=== PATIENT | female | born 1950 | race American Indian/Alaskan Native ===

== ENCOUNTER 2016-09-22 04:07 | Inpatient (IN) | payer MEDICARE ==
[2016-09-22] MEDS ORDERED: LASIX IV ONE (04:14)
[2016-09-22] MEDS ORDERED: PROVENTIL IH ONE (04:15)
[2016-09-22 04:59] LABS: Basophils % (Auto) 0.9 % (0.0-1.8); Eosinophils % (Auto) 2.2 % (0.0-4.3); Hematocrit 29.3 % (30.3-42.9); Hemoglobin 9.6 gm/dl (10.1-14.3); Mean Corpuscular HGB Conc 33 % (30-34); Mean Corpuscular Hemoglobin 29 pg (28-32); Mean Corpuscular Volume 89 fl (79-97); Platelet Count 303 K/mm3 (140-440); Red Blood Count 3.29 M/mm3 (3.65-5.03); Red Cell Distribution Width 16.1 % (13.2-15.2); White Blood Count 9.9 K/mm3 (4.5-11.0)
[2016-09-22 05:17] LABS: Creatine Kinase MB 1.6 ng/mL (0.0-4.0)
[2016-09-22 05:19] LABS: BUN/Creatinine Ratio 5.63; Calcium 8.7 mg/dL (8.4-10.2); Chloride 101.7 mmol/L (98-107); Potassium 4.9 mmol/L (3.6-5.0)
--- NOTE | 2016-09-22 05:27 | XRay Report ---
FINAL REPORT PROCEDURE: XR CHEST 1V AP TECHNIQUE: Chest radiograph anteroposterior view. CPT 35566 HISTORY: sob COMPARISON: No prior studies are available for comparison. FINDINGS: Heart: Heart is enlarged. Mediastinum/Vessels: Normal. Lungs/Pleural space: Lungs are well-expanded. There are infiltrates in the right lung base. There is a tiny right pleural effusion. There are no pneumothoraces. Bony thorax: No acute osseous abnormality. Life support devices: None. IMPRESSION: Cardiomegaly. There are right lower lobe infiltrates.. There is a tiny right pleural effusion.
--- NOTE | 2016-09-22 05:31 | Emergency Department Report ---
ED Shortness of Breath HPI - General Chief Complaint: Dyspnea/Respdistress Stated Complaint: YFN Time Seen by Provider: 09/22/16 04:11 Source: patient, EMS Mode of arrival: Stretcher Limitations: No Limitations - History of Present Illness Initial Comments: 66 year old female with a past medical history diabetes, hypertension, end- stage disease on dialysis, and elevated cholesterol presents to the hospital complaining of shortness of breath that started tonight. Patient is visiting from out of town and received her last dialysis on Wednesday. She was unable to arrange for local dialysis. Patient is room air saturation was 88% upon EMS arrival and she does not take home oxygen. She states she does take nebulized treatments on occasion but denies a history of asthma or COPD. No pain reported. O2 sat and symptoms improved with nonrebreather in route to the hospital. - Related Data Home Medications Medication Instructions Recorded Confirmed Last Taken Aspirin [Aspirin BABY CHEW TAB] 81 mg PO QDAY 08/03/13 08/03/13 08/03/13 07:00 Cinacalcet [Sensipar] 30 mg PO QDAY 08/03/13 08/03/13 08/03/13 07:00 Lisinopril [Zestril TAB] 40 mg PO BID 08/03/13 08/03/13 08/03/13 07:00 NIFEdipine [NIFEdipine ER] 60 mg PO BID 08/03/13 08/03/13 08/03/13 07:00 Omeprazole [PriLOSEC] 40 mg PO QDAY 08/03/13 08/03/13 08/03/13 07:00 Psyllium Husk [Metamucil] 0.52 gm PO QDAY 08/03/13 08/03/13 08/03/13 07:00 Vit B Cmplx 3/FA/Vit C/Biotin 1 each PO QDAY 08/03/13 08/03/13 08/03/13 07:00 [Nephro-Sheila Rx Tablet] Previous Rx's Medication Instructions Recorded Last Taken Type Cephalexin [Keflex] 500 mg PO TID #30 capsule 08/03/13 Unknown Rx Fluconazole [Diflucan TAB] 150 mg PO QDAY #1 tablet 08/03/13 Unknown Rx Sulfamethoxazole/Trimethoprim 1 each PO BID #20 tablet 08/03/13 Unknown Rx [Bactrim DS TAB] traMADol [Ultram 50 MG tab] 50 mg PO Q6HR PRN #20 tablet 08/03/13 Unknown Rx traMADol [Ultram 50 MG tab] 25 mg PO Q6HR PRN #20 tablet 02/10/14 Unknown Rx Allergies Allergy/AdvReac Type Severity Reaction Status Date / Time adhesive Allergy Mild Rash Verified 09/22/16 05:21 ED Review of Systems ROS: Stated complaint: YFN Other details as noted in HPI Comment: All other systems reviewed and negative Other: Constitutional: No fevers chills Eyes: No eye pain visual changes or ENT: No ear pain or throat pain Neck: Denies pain Respiratory: Positive shortness of breath Cardiovascular: Denies chest pain, palpitations, syncope GI: Denies abdominal pain, nausea, vomiting, diarrhea : Patient does make urine Musculoskeletal: Denies back pain Skin: Denies rash, lesions, erythema Neurologic: Denies headache, numbness, weakness Psychiatric: Denies suicidal ideation, hallucinations ED Past Medical Hx - Past Medical History Hx Hypertension: Yes Hx Diabetes: Yes Hx Renal Disease: Yes (dialysis: ) Additional medical history: High cholesterol - Surgical History Additional Surgical History: AV graft; Lumpectomy R breast - Social History Smoking Status: Current Every Day Smoker Substance Use Type: None - Medications Home Medications: Home Medications Medication Instructions Recorded Confirmed Last Taken Type Aspirin [Aspirin BABY CHEW TAB] 81 mg PO QDAY 08/03/13 08/03/13 08/03/13 07:00 History Cephalexin [Keflex] 500 mg PO TID #30 capsule 08/03/13 Unknown Rx Cinacalcet [Sensipar] 30 mg PO QDAY 08/03/13 08/03/13 08/03/13 07:00 History Fluconazole [Diflucan TAB] 150 mg PO QDAY #1 tablet 08/03/13 Unknown Rx Lisinopril [Zestril TAB] 40 mg PO BID 08/03/13 08/03/13 08/03/13 07:00 History NIFEdipine [NIFEdipine ER] 60 mg PO BID 08/03/13 08/03/13 08/03/13 07:00 History Omeprazole [PriLOSEC] 40 mg PO QDAY 08/03/13 08/03/13 08/03/13 07:00 History Psyllium Husk [Metamucil] 0.52 gm PO QDAY 08/03/13 08/03/13 08/03/13 07:00 History Sulfamethoxazole/Trimethoprim 1 each PO BID #20 tablet 08/03/13 Unknown Rx [Bactrim DS TAB] Vit B Cmplx 3/FA/Vit C/Biotin 1 each PO QDAY 08/03/13 08/03/13 08/03/13 07:00 History [Nephro-Sheila Rx Tablet] traMADol [Ultram 50 MG tab] 50 mg PO Q6HR PRN #20 tablet 08/03/13 Unknown Rx traMADol [Ultram 50 MG tab] 25 mg PO Q6HR PRN #20 tablet 02/10/14 Unknown Rx ED Physical Exam - General Limitations: No Limitations - Other Other exam information: General: No limitations, patient is alert in no acute distress Head exam: Atraumatic, normocephalic Eyes exam: Normal appearance ENT: Moist mucous membrane, normal oropharynx Neck exam: Normal inspection, full range of motion Respiratory exam: Rales more pronounced in the right compared to the left Cardiovascular: Normal rate and rhythm, normal heart sounds Abdomen: Soft, nondistended, and nontender, with normal bowel sounds, no rebound, or guarding Extremity: Full range of motion normal inspection no deformity, no calf tenderness or edema Back: Normal Inspection, full range of motion, no tenderness Neurologic: Alert, oriented x3, cranial nerves intact, no motor or sensory deficit Psychiatric: normal affect, normal mood Skin: Warm, dry, intact ED Course Vital Signs 09/22/16 09/22/16 09/22/16 04:03 04:15 04:25 Temperature Pulse Rate 79 Pulse Rate [ 74 Anterior Bilateral Throughout] Respiratory 26 H Rate Respiratory 24 Rate [Anterior Bilateral Throughout] Blood Pressure 176/70 O2 Sat by Pulse 100 100 Oximetry 09/22/16 09/22/16 04:36 05:13 Temperature 98.6 F Pulse Rate 87 Pulse Rate [ Anterior Bilateral Throughout] Respiratory 24 24 Rate Respiratory Rate [Anterior Bilateral Throughout] Blood Pressure 190/71 O2 Sat by Pulse 100 100 Oximetry - Reevaluation(s) Reevaluation #1: 09/22/16 05:31 Patient given albuterol and Lasix while labs were pending. Supplemental oxygen was continued - Consultations Consultation #1: 09/22/16 05:[address] 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 We'll arrange for dialysis today ED Medical Decision Making - Lab Data Result diagrams: 09/22/16 04:36 09/22/16 04:36 Lab Results 09/22/16 09/22/16 Range/Units 04:36 04:36 WBC 9.9 (4.5-11.0) K/mm3 RBC 3.29 L (3.65-5.03) M/mm3 Hgb 9.6 L (10.1-14.3) gm/dl Hct 29.3 L (30.3-42.9) % MCV 89 (79-97) fl MCH 29 (28-32) pg MCHC 33 (30-34) % RDW 16.1 H (13.2-15.2) % Plt Count 303 (140-440) K/mm3 Lymph % (Auto) 8.7 L (13.4-35.0) % Dodge % (Auto) 6.2 (0.0-7.3) % Eos % (Auto) 2.2 (0.0-4.3) % Baso % (Auto) 0.9 (0.0-1.8) % Lymph # 0.9 L (1.2-5.4) K/mm3 Dodge # 0.6 (0.0-0.8) K/mm3 Eos # 0.2 (0.0-0.4) K/mm3 Baso # 0.1 (0.0-0.1) K/mm3 Seg Neutrophils % 82.0 H (40.0-70.0) % Seg Neutrophils # 8.1 H (1.8-7.7) K/mm3 Sodium 144 (137-145) mmol/L Potassium 4.9 (3.6-5.0) mmol/L Chloride 101.7 (98-107) mmol/L Carbon Dioxide 25 (22-30) mmol/L Anion Gap 22 mmol/L BUN 49 H (7-17) mg/dL Creatinine 8.7 H (0.7-1.2) mg/dL Estimated GFR 6 ml/min BUN/Creatinine Ratio 5.63 % Glucose 98 (65-100) mg/dL Calcium 8.7 (8.4-10.2) mg/dL Total Creatine Kinase 91 (30-135) units/L CK-MB (CK-2) 1.6 (0.0-4.0) ng/mL CK-MB (CK-2) Rel Index 1.7 (0-4) Troponin T 0.042 H (0.00-0.029) ng/mL - EKG Data -: EKG Interpreted by Me (sinus with sinus arrhythmia weight [address] elevation or T-wave inversions) - EKG Data When compared to previous EKG there are: previous EKG unavailable - Radiology Data Radiology results: image reviewed (chest x-ray: CHF worse at the right) - Medical Decision Making Chest x-ray was read as right lower lobe infiltrate. Suspect that this is related to CHF since patient has been noncompliant with dialysis. She will be covered with Levaquin and blood cultures have been ordered. Case has been discussed with hospitalist and nephrology. Dialysis will be provided today. Elevated troponin like he secondary to chronic renal disease and no ST elevation or T-wave inversions identified on EKG. Repeat troponin will be needed. Nitropaste also ordered - Differential Diagnosis CHF, pneumonia, bronchitis, asthma Critical Care Time: No Critical care attestation.: If time is entered above; I have spent that time in minutes in the direct care of this critically ill patient, excluding procedure time. ED Disposition Clinical Impression: SOB (shortness of breath), Hypoxia, Dialysis patient, noncompliant, Right pulmonary infiltrate on CXR, Elevated troponin, Anemia, HTN (hypertension) Disposition: OP ADMIT IP TO THIS HOSP Is pt being admited?: Yes Does the pt Need Aspirin: Yes Condition: Stable Time of Disposition: 05:37 (Dr. Barba/[facility])
[2016-09-22] MEDS ORDERED: NITRO-BID 2% TP ONE (05:38)
[2016-09-22] MEDS ORDERED: ASPIRIN PO ONE (05:39)
[2016-09-22] MEDS: LEVAQUIN 750MG/150ML 750 MG/150 ML BAG IV ONE ×2 (05:54→11:37)
[2016-09-22] MEDS ORDERED: NACL 0.9% 1000 ML 1,000 ML ONE (06:38)
[2016-09-22] MEDS ORDERED: CARDIZEM/D5W 100MG/100ML 100 MG/100 ML BAG IV ONE (06:44)
--- NOTE | 2016-09-22 06:48 | Consultation ---
History of Present Illness Consult date: 09/22/16 Requesting physician: LOIDA BEASLEY Consult reason: arrhythmia History of present illness: Patient presented to the ER with complaints of shortness of breath. Patient with history of ESRD on dialysis who apparently missed dialysis this week was brought in to the ER with complaints of shortness of breath. On initial assessments she was in respiratory distress and had to be placed on a non rebreather. On arrival to the ER she apparently had diffuse wheeze and had to be administered nebulizer. Soon after jamie she went into rapid tachycardia. Initial evaluation was consistent with SVT. She received adenosine and was noted to be in atrial flutter. Patient unable to give good history. Patient in moderate distress. Past History Past Medical History: ESRD, hypertension, renal failure Social history: no significant social history Family history: no significant family history Medications and Allergies Allergies Allergy/AdvReac Type Severity Reaction Status Date / Time adhesive Allergy Mild Rash Verified 09/22/16 05:21 Home Medications Medication Instructions Recorded Confirmed Last Taken Type Aspirin [Aspirin BABY CHEW TAB] 81 mg PO QDAY 08/03/13 08/03/13 08/03/13 07:00 History Cephalexin [Keflex] 500 mg PO TID #30 capsule 08/03/13 Unknown Rx Cinacalcet [Sensipar] 30 mg PO QDAY 08/03/13 08/03/13 08/03/13 07:00 History Fluconazole [Diflucan TAB] 150 mg PO QDAY #1 tablet 08/03/13 Unknown Rx Lisinopril [Zestril TAB] 40 mg PO BID 08/03/13 08/03/13 08/03/13 07:00 History NIFEdipine [NIFEdipine ER] 60 mg PO BID 08/03/13 08/03/13 08/03/13 07:00 History Omeprazole [PriLOSEC] 40 mg PO QDAY 08/03/13 08/03/13 08/03/13 07:00 History Psyllium Husk [Metamucil] 0.52 gm PO QDAY 08/03/13 08/03/13 08/03/13 07:00 History Sulfamethoxazole/Trimethoprim 1 each PO BID #20 tablet 08/03/13 Unknown Rx [Bactrim DS TAB] Vit B Cmplx 3/FA/Vit C/Biotin 1 each PO QDAY 0508/03/13 08/03/13 07:00 History [Nephro-Sheila Rx Tablet] traMADol [Ultram 50 MG tab] 50 mg PO Q6HR PRN #20 tablet 08/03/13 Unknown Rx traMADol [Ultram 50 MG tab] 25 mg PO Q6HR PRN #20 tablet 02/10/14 Unknown Rx Active Meds: Active Medications Adenosine (Adenocard) 6 mg IV ONCE ONE Stop: 09/22/16 07:01 Levofloxacin/Dextrose (Levaquin 750mg/150ml) 750 mg in 150 mls @ 100 mls/hr IV ONCE ONE Stop: 09/22/16 07:05 Last Admin: 09/22/16 05:54 Dose: 100 mls/hr Review of Systems All systems: negative (as mentioned above) Physical Examination Vital Signs Pulse Ox 100 09/22/16 04:03 General appearance: cachectic, disheveled HEENT: Positive: Normocephaly Neck: Positive: neck supple Cardiac: Positive: Tachycardia Lungs: Positive: Rales Neuro: Positive: Grossly Intact Abdomen: Positive: Unremarkable Female genitourinary: deferred Extremities: Present: normal Results 09/22/16 04:36 09/22/16 04:36 EKG interpretations - Telemetry EKG Rhythm: Atrial Flutter (with reciprocal inferior ST depression) Assessment and Plan 1. Atrial flutter with RVR ( hemodynamicaly stable ) 2. Respiratory distress COPD/CHF 3. Elevated BNP with clinical findings suggestive of CHF 4. Borderline elevated troponin demand ischemia vs non specific elevation due to renal failure 5. ESRD on hemodylasis and non compliance Plan 1. IV cardizem /Cardizem drip 2. Dialysis for fluid removal 3. Start IV heparin 4. Start betablockers 5. 2D echo 6. Ichemia eval invasive vs non invasive depending on the clinical course 7. Start his intensity statins
[2016-09-22] MEDS ORDERED: CARDIZEM IV ONE (07:04)
--- NOTE | 2016-09-22 07:28 | Consultation ---
History of Present Illness - Reason for Consult Consult date: 09/22/16 end stage renal disease, other (Volume overload) - History of Present Illness Patient is a 66 year old AAF with medical history significnat for DM type 2, Hypertension, ESRD on hemodialysis(MWF), CVA, Hyperlipidemia, Tobacco smoking and suspected right kidney cancer presented to the ER complaining of shortness of breath. The symptom started few hours prior to the presentation. Patient is visiting from [place] and received her last dialysis on Wednesday. She didn't arrange for local dialysis and hence unable to get hemodialysis yesterday. Her initial saturation was 88% on RA. Her symptoms are better with treatment. She was found to have right sided pneumonia and A.fib with RVR. Past History Past Medical History: anemia, cancer, diabetes, dialysis, ESRD, hypertension, hyperlipidemia, renal failure, stroke Social history: no significant social history Family history: no significant family history Medications and Allergies Allergies Allergy/AdvReac Type Severity Reaction Status Date / Time adhesive Allergy Mild Rash Verified 09/22/16 05:21 Home Medications Medication Instructions Recorded Confirmed Last Taken Type Aspirin [Aspirin BABY CHEW TAB] 81 mg PO QDAY 08/03/13 08/03/13 08/03/13 07:00 History Cephalexin [Keflex] 500 mg PO TID #30 capsule 08/03/13 Unknown Rx Cinacalcet [Sensipar] 30 mg PO QDAY 08/03/13 08/03/13 08/03/13 07:00 History Fluconazole [Diflucan TAB] 150 mg PO QDAY #1 tablet 08/03/13 Unknown Rx Lisinopril [Zestril TAB] 40 mg PO BID 08/03/13 08/03/13 08/03/13 07:00 History NIFEdipine [NIFEdipine ER] 60 mg PO BID 08/03/13 08/03/13 08/03/13 07:00 History Omeprazole [PriLOSEC] 40 mg PO QDAY 08/03/13 08/03/13 08/03/13 07:00 History Psyllium Husk [Metamucil] 0.52 gm PO QDAY 08/03/13 08/03/13 08/03/13 07:00 History Sulfamethoxazole/Trimethoprim 1 each PO BID #20 tablet 08/03/13 Unknown Rx [Bactrim DS TAB] Vit B Cmplx 3/FA/Vit C/Biotin 1 each PO QDAY 08/03/13 08/03/13 08/03/13 07:00 History [Nephro-Sheila Rx Tablet] traMADol [Ultram 50 MG tab] 50 mg PO Q6HR PRN #20 tablet 08/03/13 Unknown Rx traMADol [Ultram 50 MG tab] 25 mg PO Q6HR PRN #20 tablet 02/10/14 Unknown Rx Review of Systems Constitutional: no weight loss, no weight gain, no fever, no chills, no anorexia , no weakness, no poor appetite Ears, nose, mouth and throat: no sinus pain, no epistaxis Breasts: deferred Cardiovascular: shortness of breath, dyspnea on exertion, high blood pressure, no chest pain, no orthopnea, no palpitations, no edema, no syncope, no lightheadedness, no leg edema Respiratory: cough, shortness of breath, dyspnea on exertion, no cough with sputum, no hemoptysis, no home oxygen Gastrointestinal: no abdominal pain, no nausea, no vomiting, no diarrhea, no hematemesis, no melena, no jaundice Genitourinary Female: no dysuria, no hematuria Rectal: no bleeding Musculoskeletal: no neck stiffness Integumentary: no rash, no wounds, no jaundice Neurological: paralysis, weakness, no head injury, no parathesias, no numbness, no seizures, no syncope, no tremors Psychiatric: no disorientation Hematologic/Lymphatic: no easy bruising, no easy bleeding Exam - Vital Signs Vital signs: Vital Signs Pulse Ox 100 09/22/16 04:03 - General Appearance General appearance: well-developed, appears stated age, frail, other (no distress) EENT: ATNC, PERRL, mucous membranes moist, hearing intact, vision intact Neck: Present: neck supple, trachea midline Respiratory: Rales (right base) Heart: irregularly irregular, tachycardia, S1S2, no murmurs Gastrointestinal: Present: normoactive bowel sounds. Absent: tenderness, distended Integumentary: no rash Neurologic: no asterixis, alert and oriented x3, CN 3-12 intact, other (minimal weakness of left leg) Musculoskeletal: Present: other (lefta rm AVG, no edema) Psychiatric: mood/affect appropriate, cooperative Results - Lab Results 09/22/16 04:36 09/22/16 04:36 Most recent lab results Calcium 8.7 mg/dL (8.4-10.2) 09/22/16 04:36 Assessment and Plan - Patient Problems (1) ESRD (end stage renal disease) on dialysis Current Visit: Yes Status: Chronic Plan to address problem: Patient missed hemodialysis yesterday. Currently her heart rate is 140s. Await heart rate to improve before we do hemodialysis. No acute indication for hemodialysis at present. (2) Right pulmonary infiltrate on CXR Current Visit: Yes Status: Acute (3) Atrial flutter Current Visit: Yes Status: Acute Qualifiers: Atrial flutter type: A Plan to address problem: Evaluated by Cards. (4) Anemia Current Visit: Yes Status: Chronic Qualifiers: Anemia type: A Iron deficiency anemia type: I Vitamin B12 deficiency anemia type: V Folate deficiency anemia type: F Bone marrow failure anemia type: B Hemolytic anemia type: H Other causes of anemia: O Chronic kidney disease stage: on chronic dialysis Qualified Code(s): N18.6 - End stage renal disease; D63.1 - Anemia in chronic kidney disease; Z99.2 - Dependence on renal dialysis Plan to address problem: Epogen. (5) HTN (hypertension) Current Visit: Yes Status: Acute Qualifiers: Hypertension type: H Plan to address problem: BP is fair.
--- NOTE | 2016-09-22 07:41 | Admit Criteria Form ---
Admission Criteria Documentation: SUPRAVENTRICULAR ARRHYTHMIAS Clinical Indications for Admission to Inpatient Care (Place 'X' for any and all applicable criteria): Admission is indicated by ANY ONE of the following (1)(2): [X]I. Arrhythmia causing significant symptoms or findings as indicated by ANY ONE of the following: [ ]a) Chest pain [ ]b) Myocardial ischemia [ ]c) Altered mental status [ ]d) Dizziness, weakness, or light-headedness [X]e) Dyspnea or hypoxemia [ ]f) Heart failure (eg, pulmonary edema)(11) [ ]II. Initiation of antiarrhythmic drug therapy is needed in patient at high risk of adverse events as indicated by ANY ONE of the following: [ ]a) Significant structural heart disease (eg, aortic stenosis, reduced ejection fraction, cardiomyopathy, congenital heart disease) [ ]b) Underlying sinus node or atrioventricular conduction disturbances [ ]c) Prolonged QT interval [ ]d) Need for treatment with antiarrhythmic that have significant proarrhythmic potential ( procainamide) [ ]e) Patient whose sinus rhythm has not been observed on ECG [ ]III. Inpatient admission required rather than observation care because of ANY ONE of the following: [ ]a) Syncope [ ]b) Patient has automatic implanted cardioverter-defibrillator that is repeatedly firing, malfunctioning, or in need of immediate adjustment of settings beyond scope of ambulatory or observation care. [ ]c) Hemodynamic instability that is severe or persistent [ ]d) Unstable cardiac conduction defects indicated by ANY ONE of the following(19)(20)(21): [ ]a) Type II second-degree atrioventricular block [ ]b) Third-degree atrioventricular block [ ]C) New-onset left bundle branch block with suspected myocardial ischemia [ ]e) Severe electrolyte abnormalities requiring inpatient care [ ]f) Continuous intravenous infusion of anticoagulation, platelet inhibitor, vasoactive, or antiarrhythmic medication(14) [ ]g) Pulmonary artery catheter monitoring [ ]h) Repeat cardioversion necessary [X]i) Other condition, treatment or monitoring requiring inpatient admission [ ]IV. Underlying medical condition that necessitates inpatient care (eg, thyrotoxicosis, severe acidosis) Extended stay beyond goal length of stay may be needed for(1)(17)(18): [ ]a) Persistent hemodynamic instability or continued severe arrhythmia [ ]b) Continued monitoring during initiation of certain medications (eg, some antiarrhythmics)(17)(19) [ ]c) Precipitating cause requires ongoing inpatient care (eg, severe electrolyte abnormality, systemic infection, acidosis) [ ]d) Unstable comorbidities The original [facility] content created by [facility] has been revised. The portions of the content which have been revised are identified through the use of italic text or in bold, and [facility] has neither reviewed nor approved the modified material. All other unmodified content is copyright [facility]. Please see references footnoted in the original [facility] edition 2016 Admission Criteria Met: Yes
--- NOTE | 2016-09-22 07:55 | History and Physical Report ---
History of Present Illness Date of examination: 09/22/16 Date of admission: 09/22/16 05:39 Chief complaint: Shortness of breath History of present illness: Patient is a 66-year-old woman with a history of end-stage renal disease on hemodialysis mwf, hypertension, left kidney mass reported as benign (has ablation scheduled for September 25) and GERD from [place], [place] (outside of [place]) who is visiting [place] to vist her daughter, Sharee, at bedside. She did not verify her hemodialysis setup in the [place] area prior to visiting (counseling done). She had missed multiple hemodialysis session and presents severe progressive constant nonradiating, sob at rest. She denies chest pain, productive cough, fevers or chills, abdominal pain or nausea/vomiting. She was found have severe tachycardia and SVT given adenosine and converted to a flutter with RVR. Past medical history: As HPI Past surgical history: Hemodialysis access Social history: Nonsmoker no alcohol or illegal drugs Family history: Asked but noncontributory ROS: as HPI and all other ROS reviewed and negative. Past History Past Medical History: ESRD, hypertension, renal failure Social history: no significant social history Family history: no significant family history Medications and Allergies Allergies Allergy/AdvReac Type Severity Reaction Status Date / Time adhesive Allergy Mild Rash Verified 09/22/16 05:21 levofloxacin [From Levaquin] Allergy Itching Verified 09/22/16 11:45 Home Medications Medication Instructions Recorded Confirmed Last Taken Type Cinacalcet [Sensipar] 30 mg PO QDAY 08/03/13 09/22/16 09/21/16 History Vit B Cmplx 3/FA/Vit C/Biotin 1 each PO QDAY 08/03/13 09/22/16 09/21/16 History [Nephro-Sheila Rx Tablet] traMADol [Ultram 50 MG tab] 25 mg PO Q6HR PRN #20 tablet 02/10/14 09/22/1609/21 Rx Lisinopril [Zestril TAB] 10 mg PO QDAY 09/22/16 09/22/16 09/21/16 History Lubiprostone (Nf) [Amitiza Cap 24 mcg PO BID 09/22/16 09/22/16 09/21/16 History (Nf)] Ondansetron [Zofran TAB] 4 mg PO Q8HR PRN 09/22/16 09/22/16 09/21/16 History Pantoprazole [Protonix] 40 mg PO BID 09/22/16 09/22/16 09/21/16 History Simvastatin [Zocor TAB] 20 mg PO QHS 09/22/16 09/22/16 09/21/16 History Umeclidinium [place] [Incruse 62.5 mcg IH DAILY 09/22/16 09/22/16 09/21/16 History Ellipta] amLODIPine [Norvasc] 5 mg PO DAILY 09/22/16 09/22/16 09/21/16 History Active Meds: Active Medications Acetaminophen (Tylenol) 650 mg PO Q4H PRN PRN Reason: Pain MILD(1-3)/Fever >100.5/RAMIRES Bisacodyl (Dulcolax) 10 mg AR QDAY PRN PRN Reason: Constipation unrelieved by MOM Heparin Sodium (Porcine) (Heparin) 5,000 unit SUB-Q Q12HR KORY Diltiazem HCl (Cardizem/D5w 100mg/100ml) 100 mg in 100 mls @ 5 mls/hr IV TITR KORY; 5 MG/HR PRN Reason: Protocol Magnesium Hydroxide (Milk Of Magnesia) 30 ml PO Q4H PRN PRN Reason: Constipation Ondansetron HCl (Zofran) 4 mg IV Q8H PRN PRN Reason: N/V unrelieved by Reglan Exam - Physical Exam Narrative exam: GEN: WDWN, NAD, AWAKE, ALERT, ORIENTATED x 3 HEENT: NCAT, PERRL, EOMI, OP CLEAR NECK: SUPPLE, NO THYROMEGALY, NO JVD, NO LAD CVS: Regular irregular NORMAL S1S2 LUNGS/CHEST: Bibasilar crackles, NORMAL CHEST EXPANSION B, GOOD AIR ENTRY B ABD: SOFT, NTND, GBS, NO REBOUND OR GUARDING EXT/SKIN: NO SIGNIFICANT EDEMA OR RASH MSK: FROM X 4 EXTREMITIES NEURO: CN 2-12 GROSSLY INTACT, NO FOCAL DEFICITS PSY: CALM - Constitutional Vitals: Temp Pulse Resp BP Pulse Ox 98.6 F 151 H 22 124/74 100 09/22/16 04:36 09/22/16 07:06 09/22/16 05:30 09/22/16 07:06 09/22/16 05:13 Results - Labs CBC & Chem 7: 09/22/16 04:36 09/22/16 04:36 Assessment and Plan Patient is a 66-year-old woman with a history of end-stage renal disease on hemodialysis mwf, AOCD, hypertension, left kidney mass reported as benign (has ablation scheduled for September 25) and GERD from [place], [place] (outside of [place]) who is visiting [place] to vist her daughter, Sharee, at bedside. She did not verify her hemodialysis setup in the [place] area prior to visiting (counseling done). She had missed multiple hemodialysis session and presents severe progressive constant nonradiating, sob at rest. She denies chest pain, productive cough, fevers or chills, abdominal pain or nausea/vomiting. She was found have severe tachycardia and SVT given adenosine and converted to a flutter with RVR. Chest x-ray reported as Cardiomegaly and there are right lower lobe infiltrates. There is tiny right pleural effusion. VQ scan lungs: Low probability for PE. -End-stage renal disease, noncompliant with hemodialysis: Consulted nephrology for dialysis, Counseled on compliance -Right lower lobe aspiration pneumonitis with evidence of fluid overload from missing dialysis: Treat with antibiotics, she was given Levaquin started having itching reaction, added as an Allergy -Aflutter with RVR: Cardiology consulted -DVT: scd and sq heparin
[2016-09-22] MEDS ORDERED: ZOFRAN IV PRN (08:00)
[2016-09-22] MEDS ORDERED: MILK OF MAGNESIA PO PRN (08:00)
[2016-09-22] MEDS ORDERED: CARDIZEM/D5W 100MG/100ML 100 MG/100 ML BAG IV SCH (08:00)
--- NOTE | 2016-09-22 08:55 | History and Physical Report ---
History of Present Illness Date of examination: 09/22/16 Date of admission: 09/22/16 05:39 Chief complaint: missed HD History of present illness: 09/22/2016 Past History Past Medical History: ESRD, hypertension, renal failure Social history: no significant social history Family history: no significant family history Medications and Allergies Allergies Allergy/AdvReac Type Severity Reaction Status Date / Time adhesive Allergy Mild Rash Verified 09/22/16 05:21 Home Medications Medication Instructions Recorded Confirmed Last Taken Type Aspirin [Aspirin BABY CHEW TAB] 81 mg PO QDAY 08/03/13 08/03/13 08/03/13 07:00 History Cephalexin [Keflex] 500 mg PO TID #30 capsule 08/03/13 Unknown Rx Cinacalcet [Sensipar] 30 mg PO QDAY 08/03/13 08/03/13 08/03/13 07:00 History Fluconazole [Diflucan TAB] 150 mg PO QDAY #1 tablet 08/03/13 Unknown Rx Lisinopril [Zestril TAB] 40 mg PO BID 08/03/13 08/03/13 08/03/13 07:00 History NIFEdipine [NIFEdipine ER] 60 mg PO BID 08/03/13 08/03/13 08/03/13 07:00 History Omeprazole [PriLOSEC] 40 mg PO QDAY 08/03/13 08/03/13 08/03/13 07:00 History Psyllium [place] [Metamucil] 0.52 gm PO QDAY 08/03/13 08/03/13 08/03/13 07:00 History Sulfamethoxazole/Trimethoprim 1 each PO BID #20 tablet 08/03/13 Unknown Rx [Bactrim DS TAB] Vit B Cmplx 3/FA/Vit C/Biotin 1 each PO QDAY 08/03/13 08/03/13 08/03/13 07:00 History [Nephro-Sheila Rx Tablet] traMADol [Ultram 50 MG tab] 50 mg PO Q6HR PRN #20 tablet 08/03/13 Unknown Rx traMADol [Ultram 50 MG tab] 25 mg PO Q6HR PRN #20 tablet 02/10/14 Unknown Rx Active Meds: Active Medications Acetaminophen (Tylenol) 650 mg PO Q4H PRN PRN Reason: Pain MILD(1-3)/Fever >100.5/RAMIRES Bisacodyl (Dulcolax) 10 mg MN QDAY PRN PRN Reason: Constipation unrelieved by MOM Furosemide (Lasix) 40 mg IV BID KORY Heparin Sodium (Porcine) (Heparin) 5,000 unit SUB-Q Q12HR KORY Diltiazem HCl (Cardizem/D5w 100mg/100ml) 100 mg in 100 mls @ 5 mls/hr IV TITR KORY; 5 MG/HR PRN Reason: Protocol Last Admin: 09/22/16 07:55 Dose: 5 mg/hr, 5 mls/hr Levofloxacin/Dextrose (Levaquin 750mg/150ml) 750 mg in 150 mls @ 100 mls/hr IV Q24HR KORY PRN Reason: Protocol Magnesium Hydroxide (Milk Of Magnesia) 30 ml PO Q4H PRN PRN Reason: Constipation Ondansetron HCl (Zofran) 4 mg IV Q8H PRN PRN Reason: Nausea And Vomiting Exam - Constitutional Vitals: Temp Pulse Resp BP Pulse Ox 98.6 F 179 H 22 164/75 100 09/22/16 04:36 09/22/16 07:55 09/22/16 05:30 09/22/16 07:55 09/22/16 05:13 Results - Labs CBC & Chem 7: 09/22/16 04:36 09/22/16 04:36 Labs: Laboratory Last Values WBC 9.9 K/mm3 (4.5-11.0) 09/22/16 04:36 RBC 3.29 M/mm3 (3.65-5.03) L 09/22/16 04:36 Hgb 9.6 gm/dl (10.1-14.3) L 09/22/16 04:36 Hct 29.3 % (30.3-42.9) L 09/22/16 04:36 MCV 89 fl (79-97) 09/22/16 04:36 MCH 29 pg (28-32) 09/22/16 04:36 MCHC 33 % (30-34) 09/22/16 04:36 RDW 16.1 % (13.2-15.2) H 09/22/16 04:36 Plt Count 303 K/mm3 (140-440) 09/22/16 04:36 Lymph % (Auto) 8.7 % (13.4-35.0) L 09/22/16 04:36 [place] % (Auto) 6.2 % (0.0-7.3) 09/22/16 04:36 Eos % (Auto) 2.2 % (0.0-4.3) 09/22/16 04:36 Baso % (Auto) 0.9 % (0.0-1.8) 09/22/16 04:36 Lymph # 0.9 K/mm3 (1.2-5.4) L 09/22/16 04:36 [place] # 0.6 K/mm3 (0.0-0.8) 09/22/16 04:36 Eos # 0.2 K/mm3 (0.0-0.4) 09/22/16 04:36 Baso # 0.1 K/mm3 (0.0-0.1) 09/22/16 04:36 Seg Neutrophils % 82.0 % (40.0-70.0) H 09/22/16 04:36 Seg Neutrophils # 8.1 K/mm3 (1.8-7.7) H 09/22/16 04:36 Sodium 144 mmol/L (137-145) 09/22/16 04:36 Potassium 4.9 mmol/L (3.6-5.0) 09/22/16 04:36 Chloride 101.7 mmol/L (98-107) 09/22/16 04:36 Carbon Dioxide 25 mmol/L (22-30) 09/22/16 04:36 Anion Gap 22 mmol/L 09/22/16 04:36 BUN 49 mg/dL (7-17) H 09/22/16 04:36 Creatinine 8.7 mg/dL (0.7-1.2) H 09/22/16 04:36 Estimated GFR 6 ml/min 09/22/16 04:36 BUN/Creatinine Ratio 5.63 % 09/22/16 04:36 Glucose 98 mg/dL (65-100) 09/22/16 04:36 Calcium 8.7 mg/dL (8.4-10.2) 09/22/16 04:36 Total Creatine Kinase 91 units/L (30-135) 09/22/16 04:36 CK-MB (CK-2) 1.6 ng/mL (0.0-4.0) 09/22/16 04:36 CK-MB (CK-2) Rel Index 1.7 (0-4) 09/22/16 04:36 Troponin T 0.042 ng/mL (0.00-0.029) H 09/22/16 04:36 NT-Pro-B Natriuret Pep 54075 pg/mL (0-900) H 09/22/16 04:36 Triglycerides 94 mg/dL (2-149) 09/22/16 04:36 Cholesterol 224 mg/dL (50-199) H 09/22/16 04:36 LDL Cholesterol Direct 121 mg/dL (50-130) 09/22/16 04:36 HDL Cholesterol 85 mg/dL (40-59) H 09/22/16 04:36 Cholesterol/HDL Ratio 2.63 % 09/22/16 04:36
[2016-09-22] MEDS ORDERED: BUMEX IV ONE (09:00)
[2016-09-22] MEDS ORDERED: NORMODYNE IV ONE (09:20)
[2016-09-22] MEDS ORDERED: LEVAQUIN 750MG/150ML 750 MG/150 ML BAG IV SCH (10:00)
[2016-09-22] MEDS ORDERED: LASIX IV SCH (10:00)
[2016-09-22] MEDS ORDERED: HEPARIN SUB-Q SCH (10:00)
[2016-09-22] MEDS ORDERED: DULCOLAX PR PRN (10:00)
--- NOTE | 2016-09-22 12:08 | Nuclear Medicine Report ---
LUNG SCAN, VENTILATION AND PERFUSION: History: Chest pain, tachycardia. Technique: 5mci of Tc99m MAA was infused for the perfusion images. 15mci XE 133 gas was inhaled for the ventilatory images. Correlation is made with a chest x-ray dated 09/22/16. Findings: Inhalation of Xenon gas demonstrates a normal distribution of the activity throughout both lungs. The wash out phases show mild retention of the radiotracer in both lungs consistent with mild obstructive pulmonary disease. After injection of Technetium 99m macroaggregated albumin gamma camera imaging of the lungs in multiple projections demonstrates normal pulmonary contours with a homogeneous distribution of activity. No focal areas of perfusion deficiency are identified. IMPRESSION: Low probability for pulmonary embolus.
[2016-09-22] MEDS: ZITHROMAX 500 MG in NACL 0.9% 250ML 250 ML IV SCH (12:16)
[2016-09-22] MEDS: ROCEPHIN/NS 1 GM/50 ML 1 GM/50 ML BAG IV SCH (13:30)
[2016-09-22] MEDS: TYLENOL PO PRN (14:22)
[2016-09-22] MEDS: HEPARIN SUB-Q SCH (21:54)
[2016-09-22] MEDS: COREG PO SCH (21:54)
[2016-09-23 07:39] LABS: Basophils % (Auto) 0.8 % (0.0-1.8); Eosinophils % (Auto) 2.1 % (0.0-4.3); Hematocrit 25.5 % (30.3-42.9); Hemoglobin 8.5 gm/dl (10.1-14.3); Mean Corpuscular HGB Conc 33 % (30-34); Mean Corpuscular Hemoglobin 30 pg (28-32); Mean Corpuscular Volume 89 fl (79-97); Platelet Count 276 K/mm3 (140-440); Red Blood Count 2.87 M/mm3 (3.65-5.03); Red Cell Distribution Width 16.5 % (13.2-15.2); White Blood Count 10.9 K/mm3 (4.5-11.0)
[2016-09-23 07:51] LABS: BUN/Creatinine Ratio 5.87; Calcium 8.4 mg/dL (8.4-10.2); Chloride 104.7 mmol/L (98-107); Magnesium 2.2 mg/dL (1.7-2.3); Potassium 5.2 mmol/L (3.6-5.0)
--- NOTE | 2016-09-23 08:01 | Progress Note ---
Assessment and Plan - Patient Problems (1) ESRD (end stage renal disease) on dialysis Current Visit: Yes Status: Chronic Plan to address problem: Plan to do hemodialysis today. (2) Right pulmonary infiltrate on CXR Current Visit: Yes Status: Acute (3) Atrial flutter Current Visit: Yes Status: Acute Qualifiers: Atrial flutter type: A Plan to address problem: SR now. (4) Anemia Current Visit: Yes Status: Chronic Qualifiers: Anemia type: A Iron deficiency anemia type: I Vitamin B12 deficiency anemia type: V Folate deficiency anemia type: F Bone marrow failure anemia type: B Hemolytic anemia type: H Other causes of anemia: O Chronic kidney disease stage: on chronic dialysis Qualified Code(s): N18.6 - End stage renal disease; D63.1 - Anemia in chronic kidney disease; Z99.2 - Dependence on renal dialysis Plan to address problem: Epogen. (5) HTN (hypertension) Current Visit: Yes Status: Acute Qualifiers: Hypertension type: H Plan to address problem: Patient is scheduled to get hemodialysis today. Subjective Date of service: 09/23/16 Interval history: Patient c/o shortness of breath. Objective - Vital Signs Vital signs: Vital Signs - 12hr 09/22/16 09/22/16 09/22/16 21:54 22:00 23:49 Temperature Pulse Rate 70 68 Pulse Rate [ 70 Right Radial] Respiratory 18 Rate Blood Pressure 164/84 Blood Pressure [Left] Blood Pressure [Right Arm] O2 Sat by Pulse 98 Oximetry 09/23/16 09/23/16 01:00 06:38 Temperature 97.9 F 98.9 F Pulse Rate 70 Pulse Rate [ 81 Right Radial] Respiratory 21 18 Rate Blood Pressure Blood Pressure 187/87 [Left] Blood Pressure 160/76 [Right Arm] O2 Sat by Pulse 90 93 Oximetry - General Appearance General appearance: well-developed, well-nourished, appears stated age, other ( no obvious distress) EENT: ATNC, PERRL, mucous membranes moist, hearing intact, vision intact Neck: JVD, supple Respiratory: Present: Rales (right base) Cardiology: regular, S1S2, no murmurs Gastrointestinal: normoactive bowel sounds, no tenderness, no distended Integumentary: no rash Neurologic: no asterixis, alert and oriented x3, CN 3-12 intact, other (minimal weakness of left leg) Musculoskeletal: other (no edema, left arm AVF) Psychiatric: mood/affect appropriate, cooperative - Lab 09/23/16 06:54 09/23/16 06:54 Most recent lab results Calcium 8.4 mg/dL (8.4-10.2) 09/23/16 06:54 Magnesium 2.20 mg/dL (1.7-2.3) 09/23/16 06:54
[2016-09-23] MEDS ORDERED: NORMODYNE IV PRN (08:30)
[2016-09-23] MEDS ORDERED: NACL 0.9% 100 ML IV PRN (08:30)
--- NOTE | 2016-09-23 10:42 | Progress Note ---
Assessment and Plan Atrial flutter with RVR now reverted to sinus rhythm Pneumonia Hypertension -uncontrolled Borderline elevated troponin, non specific likely due to renal failure ESRD on hemodylasis and non compliance Anemia Recent GI bleed per patient, while hospitalized in [place] Recommendations: Transition to oral cardizem for suppression of aflutter. Patient is considered not a candidate for oral anticoagulation due to recent GI bleed. Subjective Date of service: 09/23/16 Interval history: Patient complains of shortness of breath. For planned hemodialysis today. Stable sinus rhythm on telemetry. Objective Vital Signs Temp Pulse Pulse Resp BP BP BP 09/23/16 09:33 73 09/23/16 08:33 211/98 09/23/16 08:13 98.5 F 77 20 211/93 09/23/16 06:38 98.9 F 70 18 187/87 09/23/16 01:00 97.9 F 81 21 160/76 09/22/16 23:49 68 09/22/16 22:00 70 18 09/22/16 21:54 70 164/84 09/22/16 20:00 97.7 F 70 22 164/84 09/22/16 16:57 98.7 F 12 157/73 09/22/16 14:01 67 19 142/72 09/22/16 12:00 64 18 123/60 09/22/16 11:30 Pulse Ox 09/23/16 09:33 09/23/16 08:33 09/23/16 08:13 94 09/23/16 06:38 93 09/23/16 01:00 90 09/22/16 23:49 09/22/16 22:00 98 09/22/16 21:54 09/22/16 20:00 94 09/22/16 16:57 100 09/22/16 14:01 98 09/22/16 12:00 100 09/22/16 11:30 100 - Physical Examination General: No Apparent Distress Neck: Positive: trachea midline Cardiac: Positive: Reg Rate and Rhythm Neuro: Positive: Grossly Intact Abdomen: Positive: Unremarkable Extremities: Present: normal - Labs and Meds CBC 09/23/16 Range/Units 06:54 WBC 10.9 (4.5-11.0) K/mm3 RBC 2.87 L (3.65-5.03) M/mm3 Hgb 8.5 L (10.1-14.3) gm/dl Hct 25.5 L (30.3-42.9) % Plt Count 276 (140-440) K/mm3 Lymph # 0.6 L (1.2-5.4) K/mm3 [place] # 0.6 (0.0-0.8) K/mm3 Eos # 0.2 (0.0-0.4) K/mm3 Baso # 0.1 (0.0-0.1) K/mm3 Comprehensive Metabolic Panel 09/23/16 Range/Units 06:54 Sodium 145 (137-145) mmol/L Potassium 5.2 H (3.6-5.0) mmol/L Chloride 104.7 (98-107) mmol/L Carbon Dioxide 21 L (22-30) mmol/L BUN 64 H (7-17) mg/dL Creatinine 10.9 H (0.7-1.2) mg/dL Glucose 76 (65-100) mg/dL Calcium 8.4 (8.4-10.2) mg/dL
[2016-09-23] MEDS: COREG PO SCH ×2 (11:32→21:43)
[2016-09-23] MEDS: ROCEPHIN/NS 1 GM/50 ML 1 GM/50 ML BAG IV SCH (11:33)
[2016-09-23] MEDS: HEPARIN SUB-Q SCH ×2 (11:34→21:44)
--- NOTE | 2016-09-23 11:44 | Progress Note ---
Assessment and Plan Assessment and plan: Patient is a 66-year-old woman with a history of end-stage renal disease on hemodialysis mwf, AOCD, hypertension, left kidney mass reported as benign (has ablation scheduled for September 25) and GERD from [place], [place] (outside of [place]) who is visiting [place] to vist her daughter, Sharee, at bedside. She did not verify her hemodialysis setup in the [place] area prior to visiting (counseling done). She had missed multiple hemodialysis session and presents severe progressive constant nonradiating, sob at rest. She denies chest pain, productive cough, fevers or chills, abdominal pain or nausea/vomiting. She was found have severe tachycardia and SVT given adenosine and converted to a flutter with RVR. Chest x-ray reported as Cardiomegaly and there are right lower lobe infiltrates. There is tiny right pleural effusion. VQ scan lungs: Low probability for PE. -End-stage renal disease, noncompliant with hemodialysis: Consulted nephrology for dialysis, Counseled on compliance -Right lower lobe aspiration pneumonitis with evidence of fluid overload from missing dialysis: Treat with antibiotics, she was given Levaquin started having itching reaction, added as an Allergy -Aflutter with RVR: Cardiology consulted -DVT: scd and sq heparin Patient has left kidney ablation on Wednesday in [facility], she had chronic pains from this Asked Cardiology ?anticoagulation Hopefully, Discharge tomorrow. History Interval history: Patient seen and examined. Follow up on sob, better. Overnight uneventful. No cp , n/v or severe headaches. Imaging, old records, testing, labs, nursing notes reviewed. Hospitalist Physical - Physical exam Narrative exam: GEN: WDWN, NAD, AWAKE, ALERT, ORIENTATED x 3 CVS: Regular irregular NORMAL S1S2 LUNGS/CHEST: Bibasilar crackles, NORMAL CHEST EXPANSION B, GOOD AIR ENTRY B ABD: SOFT, NTND, GBS, NO REBOUND OR GUARDING EXT/SKIN: NO SIGNIFICANT EDEMA OR RASH MSK: FROM X 4 EXTREMITIES NEURO: CN 2-12 GROSSLY INTACT, NO FOCAL DEFICITS PSY: CALM - Constitutional Vitals: Temp Pulse Resp BP Pulse Ox 98.5 F 98 H 20 211/98 94 09/23/16 08:13 09/23/16 10:00 09/23/16 10:00 09/23/16 08:33 09/23/16 10:00 General appearance: Present: cachectic, disheveled Results - Labs CBC & Chem 7: 09/23/16 06:54 09/23/16 06:54 Labs: Laboratory Last Values WBC 10.9 K/mm3 (4.5-11.0) 09/23/16 06:54 RBC 2.87 M/mm3 (3.65-5.03) L 09/23/16 06:54 Hgb 8.5 gm/dl (10.1-14.3) L 09/23/16 06:54 Hct 25.5 % (30.3-42.9) L 09/23/16 06:54 MCV 89 fl (79-97) 09/23/16 06:54 MCH 30 pg (28-32) 09/23/16 06:54 MCHC 33 % (30-34) 09/23/16 06:54 RDW 16.5 % (13.2-15.2) H 09/23/16 06:54 Plt Count 276 K/mm3 (140-440) 09/23/16 06:54 Lymph % (Auto) 5.3 % (13.4-35.0) L 09/23/16 06:54 [place] % (Auto) 5.9 % (0.0-7.3) 09/23/16 06:54 Eos % (Auto) 2.1 % (0.0-4.3) 09/23/16 06:54 Baso % (Auto) 0.8 % (0.0-1.8) 09/23/16 06:54 Lymph # 0.6 K/mm3 (1.2-5.4) L 09/23/16 06:54 [place] # 0.6 K/mm3 (0.0-0.8) 09/23/16 06:54 Eos # 0.2 K/mm3 (0.0-0.4) 09/23/16 06:54 Baso # 0.1 K/mm3 (0.0-0.1) 09/23/16 06:54 Seg Neutrophils % 85.9 % (40.0-70.0) H 09/23/16 06:54 Seg Neutrophils # 9.3 K/mm3 (1.8-7.7) H 09/23/16 06:54 Sodium 145 mmol/L (137-145) 09/23/16 06:54 Potassium 5.2 mmol/L (3.6-5.0) H 09/23/16 06:54 Chloride 104.7 mmol/L (98-107) 09/23/16 06:54 Carbon Dioxide 21 mmol/L (22-30) L 09/23/16 06:54 Anion Gap 25 mmol/L 09/23/16 06:54 BUN 64 mg/dL (7-17) H 09/23/16 06:54 Creatinine 10.9 mg/dL (0.7-1.2) H 09/23/16 06:54 Estimated GFR 4 ml/min 09/23/16 06:54 BUN/Creatinine Ratio 5.87 % 09/23/16 06:54 Glucose 76 mg/dL (65-100) 09/23/16 06:54 Calcium 8.4 mg/dL (8.4-10.2) 09/23/16 06:54 Magnesium 2.20 mg/dL (1.7-2.3) 09/23/16 06:54 Total Creatine Kinase 91 units/L (30-135) 09/22/16 04:36 CK-MB (CK-2) 1.6 ng/mL (0.0-4.0) 09/22/16 04:36 CK-MB (CK-2) Rel Index 1.7 (0-4) 09/22/16 04:36 Troponin T 0.042 ng/mL (0.00-0.029) H 09/22/16 04:36 NT-Pro-B Natriuret Pep 97085 pg/mL (0-900) H 09/22/16 04:36 Triglycerides 94 mg/dL (2-149) 09/22/16 04:36 Cholesterol 224 mg/dL (50-199) H 09/22/16 04:36 LDL Cholesterol Direct 121 mg/dL (50-130) 09/22/16 04:36 HDL Cholesterol 85 mg/dL (40-59) H 09/22/16 04:36 Cholesterol/HDL Ratio 2.63 % 09/22/16 04:36 TSH 0.789 mlU/mL (0.270-4.200) 09/23/16 06:54
[2016-09-23] MEDS: ZITHROMAX 500 MG in NACL 0.9% 250ML 250 ML IV SCH (11:57)
[2016-09-23] MEDS ORDERED: PNEUMOVAX 23 IM ONE (12:00)
[2016-09-23] MEDS ORDERED: NORVASC PO SCH (14:00)
[2016-09-23] MEDS: CARDIZEM PO SCH (14:55)
[2016-09-23] MEDS: PERCOCET 5/325 PO PRN (21:42)
[2016-09-23] MEDS ORDERED: NON-FORMULARY (Lubiprostone (Nf) 24 MCG) PO SCH (22:00)
[2016-09-23] MEDS ORDERED: ZOCOR PO SCH (22:00)
[2016-09-24] MEDS: CARDIZEM PO SCH ×6 (00:42→23:41)
--- NOTE | 2016-09-24 08:58 | Progress Note ---
Assessment and Plan - Patient Problems (1) ESRD (end stage renal disease) on dialysis Current Visit: Yes Status: Chronic Plan to address problem: Patient was dialyzed yesterday. (2) Right pulmonary infiltrate on CXR Current Visit: Yes Status: Acute (3) Atrial flutter Current Visit: Yes Status: Acute Qualifiers: Atrial flutter type: A Plan to address problem: SR now. (4) Anemia Current Visit: Yes Status: Chronic Qualifiers: Anemia type: A Iron deficiency anemia type: I Vitamin B12 deficiency anemia type: V Folate deficiency anemia type: F Bone marrow failure anemia type: B Hemolytic anemia type: H Other causes of anemia: O Chronic kidney disease stage: on chronic dialysis Qualified Code(s): N18.6 - End stage renal disease; D63.1 - Anemia in chronic kidney disease; Z99.2 - Dependence on renal dialysis Plan to address problem: Epogen. (5) HTN (hypertension) Current Visit: Yes Status: Acute Qualifiers: Hypertension type: H Plan to address problem: BP is fair. (6) Neoplasm of left kidney Current Visit: Yes Status: Chronic Plan to address problem: Patient was scheduled to get ablation at [place]. Will check with Radiologist in [facility] if she could get the procedure done here. Subjective Date of service: 09/24/16 Interval history: Patient is feeling better. Objective - Vital Signs Vital signs: Vital Signs - 12hr 09/23/16 09/23/16 09/23/16 21:42 21:43 22:00 Temperature Pulse Rate 86 Respiratory 18 Rate Respiratory 18 Rate [Back] Blood Pressure 176/79 Blood Pressure [Left] O2 Sat by Pulse Oximetry 09/24/16 09/24/16 09/24/16 00:32 00:33 00:42 Temperature 98.6 F Pulse Rate 77 71 71 Respiratory 18 Rate Respiratory Rate [Back] Blood Pressure 139/65 Blood Pressure 139/65 [Left] O2 Sat by Pulse 100 Oximetry 09/24/16 09/24/16 04:20 05:30 Temperature 99.0 F Pulse Rate 64 64 Respiratory 20 Rate Respiratory Rate [Back] Blood Pressure 146/61 Blood Pressure 146/61 [Left] O2 Sat by Pulse 100 Oximetry - General Appearance General appearance: well-developed, well-nourished, appears stated age, other ( no distress) EENT: ATNC, PERRL, hearing intact, vision intact Neck: supple Respiratory: Present: Clear to Ascultation Cardiology: regular, S1S2, no murmurs Gastrointestinal: normoactive bowel sounds, no tenderness, no distended Integumentary: no rash Neurologic: no focal deficit, no asterixis, alert and oriented x3, CN 3-12 intact Musculoskeletal: other (left arm AVF, no edema) Psychiatric: mood/affect appropriate, cooperative - Lab 09/23/16 06:54 09/23/16 06:54 Most recent lab results Calcium 8.4 mg/dL (8.4-10.2) 09/23/16 06:54 Magnesium 2.20 mg/dL (1.7-2.3) 09/23/16 06:54
--- NOTE | 2016-09-24 09:13 | Progress Note ---
Assessment and Plan Atrial flutter with RVR now reverted to sinus rhythm considered not a candidate for anticoagulation due to recent GI bleeding Pneumonia Hypertension -uncontrolled Borderline elevated troponin, non specific likely due to renal failure ESRD on hemodylasis and non compliance Anemia Recent GI bleed per patient Echo is pertinent for progressive mitral stenosis and mild aortic stenosis, heavily calcified valves. EF 65-70%. Recommendations: There is no need for urgent SHAD. Pt considered not a candidate for anticoagulation due to recent GI bleeding. Continue cardizem for suppression of Afib. Volume management through hemodialysis. Subjective Date of service: 09/24/16 Interval history: Stable sinus rhythm on telemetry. Objective Vital Signs Temp Pulse Pulse Resp Resp BP BP 09/24/16 07:44 99.1 F 65 18 162/71 09/24/16 05:30 64 146/61 09/24/16 04:20 99.0 F 64 20 146/61 09/24/16 00:42 71 139/65 09/24/16 00:33 98.6 F 71 18 139/65 09/24/16 00:32 77 09/23/16 22:00 18 09/23/16 21:43 86 176/79 09/23/16 21:42 18 09/23/16 20:30 99.7 F H 86 20 176/79 09/23/16 20:15 22 09/23/16 17:50 98.0 F 70 16 158/70 09/23/16 17:30 68 142/84 09/23/16 17:15 70 142/81 09/23/16 17:00 70 172/85 09/23/16 16:45 62 167/88 09/23/16 16:30 68 176/83 09/23/16 16:15 67 188/83 09/23/16 16:00 66 192/87 09/23/16 15:45 67 195/100 09/23/16 15:30 65 190/97 09/23/16 15:15 65 197/92 09/23/16 15:00 71 181/97 09/23/16 14:55 98.6 F 71 18 187/97 09/23/16 11:44 98.4 F 78 20 229/95 09/23/16 10:00 98 H 20 09/23/16 09:33 73 Pulse Ox 09/24/16 07:44 98 09/24/16 05:30 09/24/16 04:20 100 09/24/16 00:42 09/24/16 00:33 100 09/24/16 00:32 09/23/16 22:00 09/23/16 21:43 09/23/16 21:42 09/23/16 20:30 99 09/23/16 20:15 97 09/23/16 17:50 09/23/16 17:30 09/23/16 17:15 09/23/16 17:00 09/23/16 16:45 09/23/16 16:30 09/23/16 16:15 09/23/16 16:00 09/23/16 15:45 09/23/16 15:30 09/23/16 15:15 09/23/16 15:00 09/23/16 14:55 09/23/16 11:44 94 09/23/16 10:00 94 09/23/16 09:33 - Physical Examination General: No Apparent Distress Cardiac: Positive: Reg Rate and Rhythm
[2016-09-24] MEDS: COREG PO SCH ×2 (10:29→21:58)
[2016-09-24] MEDS: SENSIPAR PO SCH (10:29)
[2016-09-24] MEDS: PROTONIX PO SCH (10:30)
[2016-09-24] MEDS: ZITHROMAX 500 MG in NACL 0.9% 250ML 250 ML IV SCH (10:30)
[2016-09-24] MEDS: ZESTRIL PO SCH (10:30)
[2016-09-24] MEDS: ROCEPHIN/NS 1 GM/50 ML 1 GM/50 ML BAG IV SCH (10:30)
[2016-09-24] MEDS: HEPARIN SUB-Q SCH ×2 (10:33→22:16)
--- NOTE | 2016-09-24 12:01 | Discharge Summary ---
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 She did not verify her hemodialysis setup in the [place] area prior to visiting (counseling done). She had missed multiple hemodialysis session and presents severe progressive constant nonradiating, sob at rest. She denies chest pain, productive cough, fevers or chills, abdominal pain or nausea/vomiting. She was found have severe tachycardia and SVT given adenosine and converted to a flutter with RVR. Chest x-ray reported as Cardiomegaly and there are right lower lobe infiltrates. There is tiny right pleural effusion. VQ scan lungs: Low probability for PE. -End-stage renal disease, noncompliant with hemodialysis: Consulted nephrology for dialysis, Counseled on compliance -Right lower lobe aspiration pneumonitis with evidence of fluid overload from missing dialysis: Treat with antibiotics, she was given Levaquin started having itching reaction, added as an Allergy -Aflutter with RVR: Cardiology consulted -DVT: scd and sq heparin Patient has left kidney ablation on Wednesday in [facility], she had chronic pains from this Asked Cardiology ?anticoagulation==>no because recent gi bleed Accelerated hypertension: added iv labetalol, hemodialysis helps no anticoagulation due recent GIB (additional history by patient); therefore, no anticoagulation. Echo 65-75% estimated EF but calcifications on mitral and aortic valve, will need SHAD when breathing is better. Hopefully wednesday or outpatient per Cardiology. per Cardiology: "Atrial flutter with RVR now reverted to sinus rhythm considered not a candidate for anticoagulation due to recent GI bleeding Pneumonia Hypertension -uncontrolled Borderline elevated troponin, non specific likely due to renal failure ESRD on hemodylasis and non compliance Anemia Recent GI bleed per patient Echo is pertinent for progressive mitral stenosis and mild aortic stenosis, heavily calcified valves. EF 65-70%. Recommendations: There is no need for urgent SHAD. Pt considered not a candidate for anticoagulation due to recent GI bleeding. Continue cardizem for suppression of Afib. Volume management through hemodialysis. Medical therapy for paroxysmal atrial fibrillation." patient weaned off o2, 92% RA Will discharge Disposition: [id number] TO HOME OR SELFCARE Time spent for discharge: 36 minutes Core Measure Documentation - Palliative Care Palliative Care/ Comfort Measures: Not Applicable - Core Measures Any of the following diagnoses?: none - VTE Discharge Requirements Deep Vein Thrombosis/Pulmonary Embolism Present on Admission: No Has pt received <5 days of overlap therapy or INR<2.0: No Anticoagulant overlap therapy prescribed at discharge: No Contraindication No Overlap Therapy order at DC: Not Indicated Exam - Physical Exam Narrative exam: GEN: WDWN, NAD, AWAKE, ALERT, ORIENTATED x 3 CVS: Regular irregular NORMAL S1S2 LUNGS/CHEST: Bibasilar crackles, NORMAL CHEST EXPANSION B, GOOD AIR ENTRY B ABD: SOFT, NTND, GBS, NO REBOUND OR GUARDING EXT/SKIN: NO SIGNIFICANT EDEMA OR RASH MSK: FROM X 4 EXTREMITIES NEURO: CN 2-12 GROSSLY INTACT, NO FOCAL DEFICITS PSY: CALM - Constitutional Vitals: Temp Pulse Resp BP Pulse Ox 99.1 F 61 18 162/71 98 09/24/16 07:44 09/24/16 11:24 09/24/16 07:44 09/24/16 07:44 09/24/16 07:44 Plan Activity: other (no strenous activites until cleared by PCP. ) Diet: low salt, renal Follow up with: PRIMARY MD MALIK [Primary Care Provider] - 3-5 Days AMANDA YOUNGBLOOD MD [Staff Physician] - 7 Days AMAURI MIRELES MD [Staff Physician] - 7 Days Prescriptions: AtorvaSTATin [Lipitor] 80 mg PO QHS #30 tablet Aspirin [Aspirin BABY CHEW TAB] 81 mg PO QDAY #30 tab.chew Carvedilol [Coreg] 12.5 mg PO BID #60 tablet Clopidogrel [Plavix] 75 mg PO QDAY #30 tablet Diltiazem [Cardizem] 30 mg PO Q6HR #1 mo Doxycycline [Vibramycin CAP] 100 mg PO Q12HR #8 capsule oxyCODONE /ACETAMINOPHEN [Percocet 5/325 mg] 1 tab PO BID PRN #30 tablet PRN Reason: Pain , Severe (7-10)
[2016-09-24] MEDS ORDERED: PROCRIT SUB-Q ONE (13:00)
--- NOTE | 2016-09-24 14:42 | Progress Note ---
Assessment and Plan Assessment and plan: Patient is a 66-year-old woman with a history of end-stage renal disease on hemodialysis mwf, AOCD, hypertension, left kidney mass reported as benign (has ablation scheduled for September 25) and GERD from [place], [place] (outside of [place]) who is visiting [place] to vist her daughter, Sharee, at bedside. She did not verify her hemodialysis setup in the [place] area prior to visiting (counseling done). She had missed multiple hemodialysis session and presents severe progressive constant nonradiating, sob at rest. She denies chest pain, productive cough, fevers or chills, abdominal pain or nausea/vomiting. She was found have severe tachycardia and SVT given adenosine and converted to a flutter with RVR. Chest x-ray reported as Cardiomegaly and there are right lower lobe infiltrates. There is tiny right pleural effusion. VQ scan lungs: Low probability for PE. -End-stage renal disease, noncompliant with hemodialysis: Consulted nephrology for dialysis, Counseled on compliance -Right lower lobe aspiration pneumonitis with evidence of fluid overload from missing dialysis: Treat with antibiotics, she was given Levaquin started having itching reaction, added as an Allergy -Aflutter with RVR: Cardiology consulted -DVT: scd and sq heparin Patient has left kidney ablation on Wednesday in [facility], she had chronic pains from this Asked Cardiology ?anticoagulation==>no b/c recent gib that patient didnt reveal upon admission It appears she doesn't want to be discharge. Now with cp since I saw and [place] Hand saw her this morning. Constant nonradiating pressure like reproducible left side chest pains since 9am this morning. Get stat ekg, ce/t History Interval history: Patient seen and examined. Follow up on sob, better. Overnight uneventful. No cp , n/v or severe headaches. Imaging, old records, testing, labs, nursing notes reviewed. Hospitalist Physical - Physical exam Narrative exam: GEN: WDWN, NAD, AWAKE, ALERT, ORIENTATED x 3 CVS: Regular irregular NORMAL S1S2 LUNGS/CHEST: Bibasilar crackles, NORMAL CHEST EXPANSION B, GOOD AIR ENTRY B ABD: SOFT, NTND, GBS, NO REBOUND OR GUARDING EXT/SKIN: NO SIGNIFICANT EDEMA OR RASH MSK: FROM X 4 EXTREMITIES NEURO: CN 2-12 GROSSLY INTACT, NO FOCAL DEFICITS PSY: CALM - Constitutional Vitals: Temp Pulse Resp BP Pulse Ox 99.1 F 61 18 162/71 95 09/24/16 07:44 09/24/16 11:24 09/24/16 07:44 09/24/16 07:44 09/24/16 10:00 General appearance: Present: cachectic, disheveled Results - Labs CBC & Chem 7: 09/23/16 06:54 09/23/16 06:54 Labs: Laboratory Last Values WBC 10.9 K/mm3 (4.5-11.0) 09/23/16 06:54 RBC 2.87 M/mm3 (3.65-5.03) L 09/23/16 06:54 Hgb 8.5 gm/dl (10.1-14.3) L 09/23/16 06:54 Hct 25.5 % (30.3-42.9) L 09/23/16 06:54 MCV 89 fl (79-97) 09/23/16 06:54 MCH 30 pg (28-32) 09/23/16 06:54 MCHC 33 % (30-34) 09/23/16 06:54 RDW 16.5 % (13.2-15.2) H 09/23/16 06:54 Plt Count 276 K/mm3 (140-440) 09/23/16 06:54 Lymph % (Auto) 5.3 % (13.4-35.0) L 09/23/16 06:54 [place] % (Auto) 5.9 % (0.0-7.3) 09/23/16 06:54 Eos % (Auto) 2.1 % (0.0-4.3) 09/23/16 06:54 Baso % (Auto) 0.8 % (0.0-1.8) 09/23/16 06:54 Lymph # 0.6 K/mm3 (1.2-5.4) L 09/23/16 06:54 [place] # 0.6 K/mm3 (0.0-0.8) 09/23/16 06:54 Eos # 0.2 K/mm3 (0.0-0.4) 09/23/16 06:54 Baso # 0.1 K/mm3 (0.0-0.1) 09/23/16 06:54 Seg Neutrophils % 85.9 % (40.0-70.0) H 09/23/16 06:54 Seg Neutrophils # 9.3 K/mm3 (1.8-7.7) H 09/23/16 06:54 Sodium 145 mmol/L (137-145) 09/23/16 06:54 Potassium 5.2 mmol/L (3.6-5.0) H 09/23/16 06:54 Chloride 104.7 mmol/L (98-107) 09/23/16 06:54 Carbon Dioxide 21 mmol/L (22-30) L 09/23/16 06:54 Anion Gap 25 mmol/L 09/23/16 06:54 BUN 64 mg/dL (7-17) H 09/23/16 06:54 Creatinine 10.9 mg/dL (0.7-1.2) H 09/23/16 06:54 Estimated GFR 4 ml/min 09/23/16 06:54 BUN/Creatinine Ratio 5.87 % 09/23/16 06:54 Glucose 76 mg/dL (65-100) 09/23/16 06:54 POC Glucose 160 (70-105) H 09/23/16 20:47 Calcium 8.4 mg/dL (8.4-10.2) 09/23/16 06:54 Magnesium 2.20 mg/dL (1.7-2.3) 09/23/16 06:54 Total Creatine Kinase 91 units/L (30-135) 09/22/16 04:36 CK-MB (CK-2) 1.6 ng/mL (0.0-4.0) 09/22/16 04:36 CK-MB (CK-2) Rel Index 1.7 (0-4) 09/22/16 04:36 Troponin T 0.042 ng/mL (0.00-0.029) H 09/22/16 04:36 NT-Pro-B Natriuret Pep 97354 pg/mL (0-900) H 09/22/16 04:36 Triglycerides 94 mg/dL (2-149) 09/22/16 04:36 Cholesterol 224 mg/dL (50-199) H 09/22/16 04:36 LDL Cholesterol Direct 121 mg/dL (50-130) 09/22/16 04:36 HDL Cholesterol 85 mg/dL (40-59) H 09/22/16 04:36 Cholesterol/HDL Ratio 2.63 % 09/22/16 04:36 TSH 0.789 mlU/mL (0.270-4.200) 09/23/16 06:54
[2016-09-24 16:04] LABS: Creatine Kinase MB 1.3 ng/mL (0.0-4.0)
[2016-09-24] MEDS ORDERED: SUBLIMAZE ONE (17:38)
[2016-09-24] MEDS ORDERED: HEPARIN/NS 5000 UNIT/500ML(CATH LAB) 500 ML IR ONE ×2 (17:38→17:40)
[2016-09-24] MEDS ORDERED: VERSED ONE (17:38)
[2016-09-24] MEDS ORDERED: HEPARIN 10,000 UNITS/10 ML ONE ×2 (17:39→19:06)
[2016-09-24] MEDS ORDERED: XYLOCAINE 2% INFILTRATI ONE (17:39)
[2016-09-24] MEDS ORDERED: NITROGLYCERIN SYRINGE 3 ML ONE (17:39)
--- NOTE | 2016-09-24 17:44 | Event Note ---
Date: 09/24/16 Patient started having chest pain this afternoon and 12 lead ECG done 14:41 is showing acute OK with ST segment elevation in the anteroseptal leads (This ECG was not presented or communicated to cardiology in a timely manner). Dr Johnson called me at 5 pm stating that patient was having chest pain. ECG changes have resolved now on repeat ECG but patient continues to have chest pain; therefore, will proceed with coronary angiography. Discussed with patient , daughter and Dr Johnson.
[2016-09-24] MEDS ORDERED: NACL 0.9% 500 ML 500 ML ONE (17:54)
[2016-09-24] MEDS ORDERED: NACL 0.9% 500 ML 500 ML IV SCH (18:00)
[2016-09-24] MEDS ORDERED: NORMODYNE IV ONE (18:01)
[2016-09-24] MEDS: HEPARIN 10,000 UNITS/10 ML ONE ×3 (18:10→19:08)
[2016-09-24] MEDS ORDERED: PLAVIX ONE (19:11)
[2016-09-24] MEDS ORDERED: ALUM-MAG HYDROX-SIMETH 200-200-20MG/5ML ONE (19:12)
--- NOTE | 2016-09-24 19:18 | Event Note ---
Date: 09/24/16 Patient underwent PCI of the RCA with BMS. Currently chest pain free
[2016-09-24] MEDS ORDERED: NACL 0.45% 1000 ML 1,000 ML IV SCH (20:00)
[2016-09-24] MEDS: TYLENOL PO PRN (20:11)
[2016-09-24] MEDS: PERCOCET 5/325 PO PRN (20:12)
[2016-09-24] MEDS ORDERED: ZOFRAN PO PRN (20:29)
--- NOTE | 2016-09-24 20:29 | Cardiac Catherization Report ---
PROCEDURE PERFORMED: 1. Selective left and right coronary angiogram. 2. Left ventriculogram. 3. Successful percutaneous intervention of the right coronary artery. PLASTIC BATTERY ASSEMBLER: Ernie Kendall MD INDICATION: Acute coronary syndrome. PROCEDURE DETAILS: 1. The patient was prepped and draped in a sterile fashion after informed consent. 2. The right groin was anesthetized using local Lidocaine infiltration. 3. The right femoral artery was entered using the Seldinger technique, followed by the placement of a 6-[place] sheath. 4. Selective left and right coronary angiography was performed using 6-[place] Citizen Ren catheters. Angiograms were done in multiple projections. 5. Selective left ventricular angiography was done using a 6-[place] Citizen pigtail catheter. Left ventricular angiography was performed in the right anterior oblique projection. 6. The catheters were withdrawn, the sheath removed, and hemostasis was achieved. 7. The patient was transferred to the post cardiac catheterization unit in stable condition. There were no complications, equipment malfunction, or technical difficulties. FINDINGS: HEMODYNAMICS: 1. AO 181/59, LV 180/12, LVEDP was 23. No significant gradient across the aortic valve. 2. Left ventriculogram done in the [place] projection was suboptimal secondary to transient VT. EF appears to be well preserved around 55% to 60%. ANGIOGRAM DETAILS: 1. Left main iscalcified but angiographically normal. 2. Heavily calcified, but fortunately no significant luminal narrowing noted. No significant stenosis noted. 3. The circumflex is again calcified medium caliber vessel. OM1/ramus is a moderate caliber vessel with no significant stenosis. There is a 60% mid circumflex stenosis. 4. The RCA is a small caliber dominant vessel. There is a 90% heavily calcified occlusion in the mid right coronary artery. IMPRESSION: 1. Significant greater than 90% mid right coronary artery calcified stenosis. 2. A 60% circumflex stenosis. 3. Preserved left ventricular systolic function. PLAN: 1. In the setting of acute coronary syndrome proceed with PCI of the right coronary artery. 2. Percutaneous intervention details: Intravenous heparin was used to maintain therapeutic ACT. An a JR4 guide catheter was used to engage the right coronary artery. Initially, we used a BMW wire and then predilated the lesion. However, we were unable to pass a 2.5 stent through the lesion. Hence, a han wire using a [place]field wire were used. Serial predilatation with 2.0 and 2.5 noncompliant balloon were unsuccessful. We were unable to pass a 2.5 bare metal stent. Finally, after significant predilatation, a 2.25 x 18 Integrity bare metal stent slit across the lesion. This was postdilated to high atmospheres. The resultant angiogram showed excellent results with no residual stenosis, dissection or thrombus. The patient tolerated the procedure well and was chest pain free at the end of the procedure. The sheath was sutured in place. The patient was given 600 mg of Plavix. IMPRESSION: Status post successful percutaneous intervention of the mid right coronary artery with the deployment of 2.25 x 18 bare metal stent. PLAN: 1. Aspirin for life. 2. Plavix for 6 weeks, preferably more. 3. The patient has a history of recent GI bleed and hence the bare metal stent was used, careful monitoring for recurrent bleed will be advised. JOB# [id number] SIOMARA/DONAL KEITH
[2016-09-24 21:13] LABS: Creatine Kinase MB 49.2 ng/mL (0.0-4.0)
[2016-09-24] MEDS: BABY ASPIRIN PO SCH (21:57)
[2016-09-25] MEDS: PERCOCET 5/325 PO PRN ×4 (00:27→22:05)
[2016-09-25] MEDS: TYLENOL PO PRN (04:52)
[2016-09-25 06:01] LABS: Basophils % (Auto) 1.2 % (0.0-1.8); Eosinophils % (Auto) 3.5 % (0.0-4.3); Hemoglobin 7.9 gm/dl (10.1-14.3); Mean Corpuscular HGB Conc 33 % (30-34); Mean Corpuscular Hemoglobin 29 pg (28-32); Mean Corpuscular Volume 89 fl (79-97); Platelet Count 260 K/mm3 (140-440); Red Blood Count 2.69 M/mm3 (3.65-5.03); Red Cell Distribution Width 16.5 % (13.2-15.2); White Blood Count 5.7 K/mm3 (4.5-11.0)
[2016-09-25] MEDS: CARDIZEM PO SCH ×4 (06:03→23:08)
[2016-09-25 06:28] LABS: Creatine Kinase MB 63.3 ng/mL (0.0-4.0)
[2016-09-25 06:31] LABS: BUN/Creatinine Ratio 4.3; Calcium 7.6 mg/dL (8.4-10.2); Chloride 97.1 mmol/L (98-107); Potassium 4.7 mmol/L (3.6-5.0)
--- NOTE | 2016-09-25 07:20 | Progress Note ---
Assessment and Plan Atrial flutter with RVR now reverted to sinus rhythm and maintaining NSR on cardizem and coreg Pneumonia Hypertension - improving Borderline elevated troponin, non specific likely due to renal failure ESRD on hemodylasis and non compliance Anemia Recent GI bleed per patient, while hospitalized in [place] Chest pain with dynamic ST/T wave changes requiring urgent cardiac cath CAD S/P PCI of the RCA with BMS Recommendations: 1. Continue baby aspirin indefinitely 2. Plavix for 6 week more if patient tolerates ( monitor for lower GI bleed ) 3. High intensity statins 4. Continue coreg 5. Change cardizem to long acting cardizem CD 180 mg 6. Dialysis today 7. Can DC home from cardiac standpoint after dialysis 8. Cardiology follow up in one week Subjective Date of service: 09/25/16 Principal diagnosis: shortness of breath Interval history: Tolerated PCI well Objective Vital Signs Temp Pulse Pulse Pulse Resp BP BP 09/25/16 06:30 51 L 10 L 140/60 09/25/16 06:03 50 L 122/52 09/25/16 06:01 52 L 11 L 133/58 09/25/16 06:00 52 L 09/25/16 05:30 51 L 12 122/52 09/25/16 05:01 60 16 114/56 09/25/16 04:53 13 09/25/16 04:52 16 09/25/16 04:30 51 L 12 114/56 09/25/16 04:25 97.5 F L 09/25/16 04:01 51 L 12 139/54 09/25/16 03:30 51 L 11 L 111/50 09/25/16 03:00 55 L 16 121/51 09/25/16 02:31 55 L 13 124/54 09/25/16 02:01 53 L 16 116/63 09/25/16 02:00 53 L 16 09/25/16 01:36 53 L 09/25/16 01:31 53 L 12 119/52 09/25/16 01:27 12 09/25/16 01:01 55 L 13 157/64 09/25/16 00:30 53 L 13 139/59 09/25/16 00:27 16 09/25/16 00:26 97.9 F 09/25/16 00:00 54 L 13 132/60 09/24/16 23:41 55 L 145/55 09/24/16 23:30 54 L 13 145/59 09/24/16 23:00 56 L 15 149/62 09/24/16 22:30 58 L 15 157/65 09/24/16 22:00 57 L 12 149/60 09/24/16 21:58 61 166/63 09/24/16 21:31 60 10 L 09/24/16 21:12 16 09/24/16 21:11 16 09/24/16 21:04 09/24/16 21:01 60 15 09/24/16 20:36 64 17 09/24/16 20:12 0 L 09/24/16 20:11 14 09/24/16 15:26 98.8 F 64 20 180/79 09/24/16 11:24 61 09/24/16 10:00 61 09/24/16 07:44 99.1 F 65 18 162/71 Pulse Ox 09/25/16 06:30 100 09/25/16 06:03 09/25/16 06:01 99 09/25/16 06:00 99 09/25/16 05:30 99 09/25/16 05:01 99 09/25/16 04:53 09/25/16 04:52 09/25/16 04:30 100 09/25/16 04:25 09/25/16 04:01 100 09/25/16 03:30 97 09/25/16 03:00 97 09/25/16 02:31 99 09/25/16 02:01 100 09/25/16 02:00 100 09/25/16 01:36 09/25/16 01:31 97 09/25/16 01:27 09/25/16 01:01 100 09/25/16 00:30 98 09/25/16 00:27 09/25/16 00:26 09/25/16 00:00 100 09/24/16 23:41 09/24/16 23:30 100 09/24/16 23:00 99 09/24/16 22:30 99 09/24/16 22:00 99 09/24/16 21:58 09/24/16 21:31 100 09/24/16 21:12 09/24/16 21:11 09/24/16 21:04 100 09/24/16 21:01 99 09/24/16 20:36 100 09/24/16 20:12 09/24/16 20:11 09/24/16 15:26 95 09/24/16 11:24 09/24/16 10:00 95 09/24/16 07:44 98 - Physical Examination Narrative exam: Frail No acute distress General: No Apparent Distress HEENT: Positive: Normocephaly Neck: Positive: trachea midline Cardiac: Positive: Reg Rate and Rhythm Lungs: Positive: Normal Exam Neuro: Positive: Grossly Intact Abdomen: Positive: Unremarkable Extremities: Present: normal (No hematoma noted cardiac cath site ) - Labs and Meds Cardiac Enzymes 09/24/16 09/24/16 09/25/16 Range/Units 15:29 20:31 00:18 CK-MB (CK-2) 1.3 49.2 H 69.0 H (0.0-4.0) ng/mL 09/25/16 Range/Units 04:49 CK-MB (CK-2) 63.3 H (0.0-4.0) ng/mL CBC 09/25/16 Range/Units 04:49 WBC 5.7 (4.5-11.0) K/mm3 RBC 2.69 L (3.65-5.03) M/mm3 Hgb 7.9 L (10.1-14.3) gm/dl Hct 24.0 L (30.3-42.9) % Plt Count 260 (140-440) K/mm3 Lymph # 1.4 (1.2-5.4) K/mm3 [place] # 0.7 (0.0-0.8) K/mm3 Eos # 0.2 (0.0-0.4) K/mm3 Baso # 0.1 (0.0-0.1) K/mm3 Comprehensive Metabolic Panel 09/25/16 Range/Units 04:49 Sodium 137 D (137-145) mmol/L Potassium 4.7 (3.6-5.0) mmol/L Chloride 97.1 L (98-107) mmol/L Carbon Dioxide 23 (22-30) mmol/L BUN 34 H (7-17) mg/dL Creatinine 7.9 H (0.7-1.2) mg/dL Glucose 72 (65-100) mg/dL Calcium 7.6 L (8.4-10.2) mg/dL
--- NOTE | 2016-09-25 08:17 | Progress Note ---
Assessment and Plan - Patient Problems (1) ESRD (end stage renal disease) on dialysis Current Visit: Yes Status: Chronic Plan to address problem: Continue hemodialysis MWF. (2) Right pulmonary infiltrate on CXR Current Visit: Yes Status: Acute (3) Atrial flutter Current Visit: Yes Status: Acute Qualifiers: Atrial flutter type: A Plan to address problem: SR now. (4) Anemia Current Visit: Yes Status: Chronic Qualifiers: Anemia type: A Iron deficiency anemia type: I Vitamin B12 deficiency anemia type: V Folate deficiency anemia type: F Bone marrow failure anemia type: B Hemolytic anemia type: H Other causes of anemia: O Chronic kidney disease stage: on chronic dialysis Qualified Code(s): N18.6 - End stage renal disease; D63.1 - Anemia in chronic kidney disease; Z99.2 - Dependence on renal dialysis Plan to address problem: Epogen. (5) Acute DE Current Visit: Yes Status: Acute Qualifiers: Myocardial infarction ST status: M Involved coronary artery: I Plan to address problem: S/p PCI. (6) HTN (hypertension) Current Visit: Yes Status: Acute Qualifiers: Hypertension type: H Plan to address problem: BP is fair. (7) Neoplasm of left kidney Current Visit: Yes Status: Chronic Plan to address problem: Patient was scheduled to get ablation at [place]. D/w Radiologist and there is no equipment to the procedure in [facility]. Subjective Date of service: 09/25/16 Principal diagnosis: shortness of breath Interval history: Events noted. S/p PCI and she is in ICU at present. Objective - Vital Signs Vital signs: Vital Signs - 12hr 09/24/16 09/24/16 09/24/16 20:36 21:01 21:04 Temperature Pulse Rate 64 60 Pulse Rate [ From Monitor] Respiratory 17 15 Rate Blood Pressure O2 Sat by Pulse 100 99 100 Oximetry 09/24/16 09/24/16 09/24/16 21:11 21:12 21:31 Temperature Pulse Rate 60 Pulse Rate [ From Monitor] Respiratory 16 16 10 L Rate Blood Pressure O2 Sat by Pulse 100 Oximetry 09/24/16 09/24/16 09/24/16 21:58 22:00 22:30 Temperature Pulse Rate 61 57 L 58 L Pulse Rate [ From Monitor] Respiratory 12 15 Rate Blood Pressure 166/63 149/60 157/65 O2 Sat by Pulse 99 99 Oximetry 09/24/16 09/24/16 09/24/16 23:00 23:30 23:41 Temperature Pulse Rate 56 L 54 L 55 L Pulse Rate [ From Monitor] Respiratory 15 13 Rate Blood Pressure 149/62 145/59 145/55 O2 Sat by Pulse 99 100 Oximetry 09/25/16 09/25/16 09/25/16 00:00 00:26 00:27 Temperature 97.9 F Pulse Rate 54 L Pulse Rate [ From Monitor] Respiratory 13 16 Rate Blood Pressure 132/60 O2 Sat by Pulse 100 Oximetry 09/25/16 09/25/16 09/25/16 00:30 01:01 01:27 Temperature Pulse Rate 53 L 55 L Pulse Rate [ From Monitor] Respiratory 13 13 12 Rate Blood Pressure 139/59 157/64 O2 Sat by Pulse 98 100 Oximetry 09/25/16 09/25/16 09/25/16 01:31 01:36 02:00 Temperature Pulse Rate 53 L 53 L Pulse Rate [ 53 L From Monitor] Respiratory 12 16 Rate Blood Pressure 119/52 O2 Sat by Pulse 97 100 Oximetry 09/25/16 09/25/16 09/25/16 02:01 02:31 03:00 Temperature Pulse Rate 53 L 55 L 55 L Pulse Rate [ From Monitor] Respiratory 16 13 16 Rate Blood Pressure 116/63 124/54 121/51 O2 Sat by Pulse 100 99 97 Oximetry 09/25/16 09/25/16 09/25/16 03:30 04:01 04:25 Temperature 97.5 F L Pulse Rate 51 L 51 L Pulse Rate [ From Monitor] Respiratory 11 L 12 Rate Blood Pressure 111/50 139/54 O2 Sat by Pulse 97 100 Oximetry 09/25/16 09/25/16 09/25/16 04:30 04:52 04:53 Temperature Pulse Rate 51 L Pulse Rate [ From Monitor] Respiratory 12 16 13 Rate Blood Pressure 114/56 O2 Sat by Pulse 100 Oximetry 09/25/16 09/25/16 09/25/16 05:01 05:30 06:00 Temperature Pulse Rate 60 51 L Pulse Rate [ 52 L From Monitor] Respiratory 16 12 Rate Blood Pressure 114/56 122/52 O2 Sat by Pulse 99 99 99 Oximetry 09/25/16 09/25/16 09/25/16 06:01 06:03 06:30 Temperature Pulse Rate 52 L 50 L 51 L Pulse Rate [ From Monitor] Respiratory 11 L 10 L Rate Blood Pressure 133/58 122/52 140/60 O2 Sat by Pulse 99 100 Oximetry 09/25/16 07:56 Temperature 98.4 F Pulse Rate Pulse Rate [ From Monitor] Respiratory Rate Blood Pressure O2 Sat by Pulse Oximetry - General Appearance General appearance: well-developed, well-nourished, appears stated age, other ( no distress) EENT: ATNC, PERRL, mucous membranes moist, hearing intact, vision intact Neck: supple Respiratory: Present: Clear to Ascultation Cardiology: regular, S1S2, no murmurs Gastrointestinal: normoactive bowel sounds, no tenderness, no distended Integumentary: no rash Neurologic: no asterixis, alert and oriented x3, CN 3-12 intact, other (slight weakness of left leg (chronic)) Musculoskeletal: other (left arm AVF, no edema) Psychiatric: mood/affect appropriate, cooperative - Lab 09/26/16 05:14 09/26/16 05:14 Most recent lab results Calcium 7.6 mg/dL (8.4-10.2) L 09/25/16 04:49 Magnesium 2.20 mg/dL (1.7-2.3) 09/23/16 06:54
[2016-09-25] MEDS: COREG PO SCH ×2 (10:00→22:07)
[2016-09-25] MEDS: HEPARIN SUB-Q SCH ×2 (10:27→22:04)
[2016-09-25] MEDS: SENSIPAR PO SCH (10:28)
[2016-09-25] MEDS: BABY ASPIRIN PO SCH (10:28)
[2016-09-25] MEDS: PLAVIX PO SCH (10:29)
[2016-09-25] MEDS: PROTONIX PO SCH (10:29)
[2016-09-25] MEDS: ROCEPHIN/NS 1 GM/50 ML 1 GM/50 ML BAG IV SCH (10:30)
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
--- NOTE | 2016-09-25 14:04 | Progress Note ---
Assessment and Plan Assessment and plan: Patient is a 66-year-old woman with a history of end-stage renal disease on hemodialysis mwf, AOCD, hypertension, left kidney mass reported as benign (has ablation scheduled for September 25) and GERD from [place], [place] (outside of [place]) who is visiting [place] to vist her daughter, Sharee, at bedside. She did not verify her hemodialysis setup in the [place] area prior to visiting (counseling done). She had missed multiple hemodialysis session and presents severe progressive constant nonradiating, sob at rest. She denies chest pain, productive cough, fevers or chills, abdominal pain or nausea/vomiting. She was found to have severe tachycardia and SVT given adenosine and converted to a flutter with RVR. Chest x-ray reported as Cardiomegaly and there are right lower lobe infiltrates. There is tiny right pleural effusion. VQ scan lungs: Low probability for PE. -End-stage renal disease, noncompliant with hemodialysis: Consulted nephrology for dialysis, Counseled on compliance -Right lower lobe aspiration pneumonitis with evidence of fluid overload from missing dialysis: Treat with antibiotics, she was given Levaquin started having itching reaction, added as an Allergy -Aflutter with RVR: Cardiology consulted -DVT: scd and sq heparin Patient has left kidney ablation on Wednesday in [facility], she had chronic pains from this Asked Cardiology ?anticoagulation==>no b/c recent gib that patient didnt reveal upon admission 09/23/16 She developed cp since I saw her this morning. Get stat ekg, ce/t==> When I reviewed EKG, I informed the nurse to call Cardiology for supicious STEMI anterior leads. I was told by the RN that Cardiology had reviewed the EKG and troponin was critical. Patient continued to have chest pains so I called RAVINDRA Garland and I asked her did Cardiology see the patient and her EKG. Dada told me that patient wasn't in the room and chart/EKG wasn't available to be reviewed but Dr. Ferreira is still in the hospital, whom I called. He reviewed the EKG with me at nursing station and patient went emergently to Cardiac cath== >She had PCI of RCA with bare metal stent but EKG showed anterior STEMI? The st elevation in anterior leads may have been vasospasm per Dr. Ferreira or not a true STEMI. I am told once the stent was placed the chest pains went immediately away. per Cardiology: Atrial flutter with RVR now reverted to sinus rhythm and maintaining NSR on cardizem and coreg Pneumonia Hypertension - improving Borderline elevated troponin, non specific likely due to renal failure ESRD on hemodylasis and non compliance Anemia Recent GI bleed per patient, while hospitalized in [place] Chest pain with dynamic ST/T wave changes requiring urgent cardiac cath CAD S/P PCI of the RCA with BMS Recommendations: 1. Continue baby aspirin indefinitely 2. Plavix for 6 week more if patient tolerates ( monitor for lower GI bleed ) 3. High intensity statins 4. Continue coreg 5. Change cardizem to long acting cardizem CD 180 mg 6. Dialysis today 7. Can DC home from cardiac standpoint after dialysis 8. Cardiology follow up in one week Awaiting on HD setup History Interval history: Patient seen and examined. Follow up on sob, better. Yesterday was eventful. with cp, No cp now, n/v or severe headaches. Imaging, old records, testing, labs, nursing notes reviewed. Hospitalist Physical - Physical exam Narrative exam: GEN: WDWN, NAD, AWAKE, ALERT, ORIENTATED x 3 CVS: Regular irregular NORMAL S1S2 LUNGS/CHEST: Bibasilar crackles, NORMAL CHEST EXPANSION B, GOOD AIR ENTRY B ABD: SOFT, NTND, GBS, NO REBOUND OR GUARDING EXT/SKIN: NO SIGNIFICANT EDEMA OR RASH MSK: FROM X 4 EXTREMITIES NEURO: CN 2-12 GROSSLY INTACT, NO FOCAL DEFICITS PSY: CALM - Constitutional Vitals: Temp Pulse Resp BP Pulse Ox 98.0 F 56 L 14 95/52 100 09/25/16 12:00 09/25/16 14:00 09/25/16 13:00 09/25/16 14:00 09/25/16 13:00 General appearance: Present: no acute distress, well-nourished Results - Labs CBC & Chem 7: 09/25/16 04:49 09/25/16 04:49 Labs: Laboratory Last Values WBC 5.7 K/mm3 (4.5-11.0) 09/25/16 04:49 RBC 2.69 M/mm3 (3.65-5.03) L 09/25/16 04:49 Hgb 7.9 gm/dl (10.1-14.3) L 09/25/16 04:49 Hct 24.0 % (30.3-42.9) L 09/25/16 04:49 MCV 89 fl (79-97) 09/25/16 04:49 MCH 29 pg (28-32) 09/25/16 04:49 MCHC 33 % (30-34) 09/25/16 04:49 RDW 16.5 % (13.2-15.2) H 09/25/16 04:49 Plt Count 260 K/mm3 (140-440) 09/25/16 04:49 Lymph % (Auto) 24.6 % (13.4-35.0) 09/25/16 04:49 Pepin % (Auto) 12.9 % (0.0-7.3) H 09/25/16 04:49 Eos % (Auto) 3.5 % (0.0-4.3) 09/25/16 04:49 Baso % (Auto) 1.2 % (0.0-1.8) 09/25/16 04:49 Lymph # 1.4 K/mm3 (1.2-5.4) 09/25/16 04:49 Pepin # 0.7 K/mm3 (0.0-0.8) 09/25/16 04:49 Eos # 0.2 K/mm3 (0.0-0.4) 09/25/16 04:49 Baso # 0.1 K/mm3 (0.0-0.1) 09/25/16 04:49 Seg Neutrophils % 57.8 % (40.0-70.0) 09/25/16 04:49 Seg Neutrophils # 3.3 K/mm3 (1.8-7.7) 09/25/16 04:49 Activated Clotting Time 180 (74-137) H 09/24/16 21:38 Sodium 137 mmol/L (137-145) D 09/25/16 04:49 Potassium 4.7 mmol/L (3.6-5.0) 09/25/16 04:49 Chloride 97.1 mmol/L (98-107) L 09/25/16 04:49 Carbon Dioxide 23 mmol/L (22-30) 09/25/16 04:49 Anion Gap 22 mmol/L 09/25/16 04:49 BUN 34 mg/dL (7-17) H 09/25/16 04:49 Creatinine 7.9 mg/dL (0.7-1.2) H 09/25/16 04:49 Estimated GFR 6 ml/min 09/25/16 04:49 BUN/Creatinine Ratio 4.30 % 09/25/16 04:49 Glucose 72 mg/dL (65-100) 09/25/16 04:49 POC Glucose 123 (70-105) H 09/25/16 10:14 Calcium 7.6 mg/dL (8.4-10.2) L 09/25/16 04:49 Magnesium 2.20 mg/dL (1.7-2.3) 09/23/16 06:54 Total Creatine Kinase 696 units/L (30-135) H 09/25/16 04:49 CK-MB (CK-2) 63.3 ng/mL (0.0-4.0) H 09/25/16 04:49 CK-MB (CK-2) Rel Index 9.0 (0-4) H 09/25/16 04:49 Troponin T 3.110 ng/mL (0.00-0.029) H* 09/25/16 04:49 NT-Pro-B Natriuret Pep 45500 pg/mL (0-900) H 09/22/16 04:36 Triglycerides 94 mg/dL (2-149) 09/22/16 04:36 Cholesterol 224 mg/dL (50-199) H 09/22/16 04:36 LDL Cholesterol Direct 121 mg/dL (50-130) 09/22/16 04:36 HDL Cholesterol 85 mg/dL (40-59) H 09/22/16 04:36 Cholesterol/HDL Ratio 2.63 % 09/22/16 04:36 TSH 0.789 mlU/mL (0.270-4.200) 09/23/16 06:54
[2016-09-25] MEDS: ZESTRIL PO SCH (14:09)
[2016-09-25] MEDS: ZITHROMAX 500 MG in NACL 0.9% 250ML 250 ML IV SCH (15:22)
[2016-09-25] MEDS ORDERED: NACL 0.9 (PRIMING MACHINE ONLY DIALYSIS) MC ONE (16:09)
[2016-09-26] MEDS: CARDIZEM PO SCH ×3 (05:37→18:40)
[2016-09-26 05:48] LABS: Hematocrit 26.3 % (30.3-42.9); Hemoglobin 8.7 gm/dl (10.1-14.3); Mean Corpuscular HGB Conc 33 % (30-34); Mean Corpuscular Hemoglobin 30 pg (28-32); Mean Corpuscular Volume 90 fl (79-97); Platelet Count 297 K/mm3 (140-440); Red Blood Count 2.92 M/mm3 (3.65-5.03); Red Cell Distribution Width 15.9 % (13.2-15.2); White Blood Count 6.7 K/mm3 (4.5-11.0)
[2016-09-26 06:10] LABS: BUN/Creatinine Ratio 3.12; Chloride 96.9 mmol/L (98-107); Potassium 4.1 mmol/L (3.6-5.0)
--- NOTE | 2016-09-26 07:39 | Progress Note ---
Assessment and Plan - Patient Problems (1) ESRD (end stage renal disease) on dialysis Current Visit: Yes Status: Chronic Plan to address problem: Continue hemodialysis MWF, last dialyzed yesterday. (2) Acute UT Current Visit: Yes Status: Acute Qualifiers: Myocardial infarction ST status: M Involved coronary artery: I Plan to address problem: S/p PCI. (3) Right pulmonary infiltrate on CXR Current Visit: Yes Status: Acute Plan to address problem: On Ceftriaxone and Azithromycin. (4) Atrial flutter Current Visit: Yes Status: Acute Qualifiers: Atrial flutter type: A Plan to address problem: SR now. (5) Anemia Current Visit: Yes Status: Chronic Qualifiers: Anemia type: A Iron deficiency anemia type: I Vitamin B12 deficiency anemia type: V Folate deficiency anemia type: F Bone marrow failure anemia type: B Hemolytic anemia type: H Other causes of anemia: O Chronic kidney disease stage: on chronic dialysis Qualified Code(s): N18.6 - End stage renal disease; D63.1 - Anemia in chronic kidney disease; Z99.2 - Dependence on renal dialysis Plan to address problem: Epogen. (6) HTN (hypertension) Current Visit: Yes Status: Acute Qualifiers: Hypertension type: H Plan to address problem: BP is fair. (7) Neoplasm of left kidney Current Visit: Yes Status: Chronic Plan to address problem: Patient was advised to reschedule her appt for ablation at [place]. Subjective Date of service: 09/26/16 Principal diagnosis: shortness of breath Interval history: Patient is doing ok. Objective - Vital Signs Vital signs: Vital Signs - 12hr 09/25/16 09/25/16 09/25/16 19:49 19:50 20:46 Temperature Pulse Rate 66 70 Pulse Rate [ From Monitor] Pulse Rate [ Left Dorsalis Pedis] Pulse Rate [ Left Radial] Pulse Rate [ Right Dorsalis Pedis] Pulse Rate [ Right Radial] Respiratory 20 Rate Respiratory Rate [Back] Blood Pressure 142/67 Blood Pressure [Right Arm] O2 Sat by Pulse 100 Oximetry 09/25/16 09/25/16 09/25/16 21:58 22:05 22:07 Temperature 98.0 F Pulse Rate 66 Pulse Rate [ 86 From Monitor] Pulse Rate [ 86 Left Dorsalis Pedis] Pulse Rate [ 86 Left Radial] Pulse Rate [ 86 Right Dorsalis Pedis] Pulse Rate [ 86 Right Radial] Respiratory 20 20 Rate Respiratory Rate [Back] Blood Pressure 142/67 Blood Pressure 142/67 [Right Arm] O2 Sat by Pulse 100 Oximetry 09/25/16 09/25/16 09/25/16 22:09 22:12 23:05 Temperature Pulse Rate Pulse Rate [ From Monitor] Pulse Rate [ Left Dorsalis Pedis] Pulse Rate [ Left Radial] Pulse Rate [ Right Dorsalis Pedis] Pulse Rate [ Right Radial] Respiratory 20 20 Rate Respiratory 20 Rate [Back] Blood Pressure Blood Pressure [Right Arm] O2 Sat by Pulse Oximetry 09/25/16 09/25/16 09/26/16 23:08 23:35 05:17 Temperature 98.5 F 98.0 F Pulse Rate 67 Pulse Rate [ 67 57 L From Monitor] Pulse Rate [ 67 57 L Left Dorsalis Pedis] Pulse Rate [ 67 57 L Left Radial] Pulse Rate [ 67 57 L Right Dorsalis Pedis] Pulse Rate [ 67 57 L Right Radial] Respiratory 18 18 Rate Respiratory Rate [Back] Blood Pressure 118/56 Blood Pressure 118/56 113/56 [Right Arm] O2 Sat by Pulse 100 100 Oximetry 09/26/16 05:37 Temperature Pulse Rate 61 Pulse Rate [ From Monitor] Pulse Rate [ Left Dorsalis Pedis] Pulse Rate [ Left Radial] Pulse Rate [ Right Dorsalis Pedis] Pulse Rate [ Right Radial] Respiratory Rate Respiratory Rate [Back] Blood Pressure 118/72 Blood Pressure [Right Arm] O2 Sat by Pulse Oximetry - General Appearance General appearance: well-developed, well-nourished, appears stated age, other ( no distress) EENT: ATNC, PERRL, mucous membranes moist, hearing intact, vision intact Neck: supple Respiratory: Present: Clear to Ascultation Cardiology: regular, S1S2, no murmurs Gastrointestinal: normoactive bowel sounds, no tenderness, no distended Integumentary: no rash Neurologic: no focal deficit, no asterixis, alert and oriented x3, CN 3-12 intact Musculoskeletal: other (left arm AVF, no edema) Psychiatric: mood/affect appropriate, cooperative - Lab 09/26/16 05:14 09/26/16 05:14 Most recent lab results Calcium 8.0 mg/dL (8.4-10.2) L 09/26/16 05:14 Magnesium 2.20 mg/dL (1.7-2.3) 09/23/16 06:54
[2016-09-26] MEDS: SENSIPAR PO SCH (10:12)
[2016-09-26] MEDS: BABY ASPIRIN PO SCH (10:12)
[2016-09-26] MEDS: PLAVIX PO SCH (10:12)
[2016-09-26] MEDS: PROTONIX PO SCH (10:12)
[2016-09-26] MEDS: PERCOCET 5/325 PO PRN ×2 (10:13→21:58)
[2016-09-26] MEDS: HEPARIN SUB-Q SCH ×2 (10:15→22:00)
[2016-09-26] MEDS: ZESTRIL PO SCH (10:28)
[2016-09-26] MEDS: ROCEPHIN/NS 1 GM/50 ML 1 GM/50 ML BAG IV SCH (10:29)
[2016-09-26] MEDS: COREG PO SCH ×2 (10:29→21:59)
[2016-09-26] MEDS: ZITHROMAX 500 MG in NACL 0.9% 250ML 250 ML IV SCH (11:00)
--- NOTE | 2016-09-26 11:00 | Progress Note ---
Assessment and Plan 1. Arthrosclerotic heart disease status post PCI to the right coronary artery using a bare-metal stent. 2. Paroxysmal atrial fibrillation and flutter currently in sinus rhythm 3. Essential hypertension 4. End-stage renal disease on hemodialysis 5. Anemia probably secondary to chronic disease 6. S/P SVT Plan. Cardiac-grimm stable continue present medication monitor for any real cough or evidence of GI bleeds on antiplatelet therapy. Subjective Date of service: 09/26/16 Principal diagnosis: CAD Interval history: Patient feels fine and wants to go home. Objective Vital Signs Temp Pulse Pulse Pulse Pulse Pulse Pulse 09/26/16 10:29 57 L 09/26/16 10:28 57 L 09/26/16 07:15 98.9 F 62 62 62 62 58 L 09/26/16 05:37 61 09/26/16 05:17 98.0 F 57 L 57 L 57 L 57 L 57 L 09/25/16 23:35 98.5 F 67 67 67 67 67 09/25/16 23:08 67 09/25/16 23:05 09/25/16 22:12 09/25/16 22:09 09/25/16 22:07 66 09/25/16 22:05 09/25/16 21:58 98.0 F 86 86 86 86 86 09/25/16 20:46 70 09/25/16 19:50 09/25/16 19:49 66 09/25/16 18:00 67 09/25/16 16:01 65 09/25/16 15:31 67 09/25/16 15:00 61 09/25/16 14:44 97.9 F 55 L 09/25/16 14:30 57 L 09/25/16 14:09 09/25/16 14:00 56 L 09/25/16 13:45 57 L 09/25/16 13:31 56 L 09/25/16 13:30 55 L 09/25/16 13:15 52 L 09/25/16 13:00 57 L 09/25/16 12:45 60 09/25/16 12:30 59 L 09/25/16 12:15 58 L 09/25/16 12:00 98.0 F 57 L 09/25/16 11:45 58 L 09/25/16 11:30 55 L 09/25/16 11:15 53 L 09/25/16 11:06 09/25/16 11:00 52 L Resp Resp BP BP Pulse Ox 09/26/16 10:29 123/59 09/26/16 10:28 123/59 09/26/16 07:15 12 110/48 100 09/26/16 05:37 118/72 09/26/16 05:17 18 113/56 100 09/25/16 23:35 18 118/56 100 09/25/16 23:08 118/56 09/25/16 23:05 20 09/25/16 22:12 20 09/25/16 22:09 20 09/25/16 22:07 142/67 09/25/16 22:05 20 09/25/16 21:58 20 142/67 100 09/25/16 20:46 09/25/16 19:50 20 100 09/25/16 19:49 142/67 09/25/16 18:00 20 09/25/16 16:01 13 145/47 100 09/25/16 15:31 17 145/47 99 09/25/16 15:00 8 L 151/36 64 L 09/25/16 14:44 16 120/53 09/25/16 14:30 10 L 151/36 100 09/25/16 14:09 155/65 09/25/16 14:00 14 120/54 100 09/25/16 13:45 134/58 09/25/16 13:31 9 L 129/47 100 09/25/16 13:30 121/27 09/25/16 13:15 129/47 09/25/16 13:00 14 120/45 100 09/25/16 12:45 117/56 09/25/16 12:30 14 117/56 100 09/25/16 12:15 132/58 09/25/16 12:00 13 132/58 100 09/25/16 11:45 154/61 09/25/16 11:30 13 156/64 100 09/25/16 11:15 161/64 09/25/16 11:06 100 09/25/16 11:00 13 172/67 100 - Physical Examination General: Appears Well, No Apparent Distress HEENT: Positive: Normocephaly Neck: Positive: neck supple, trachea midline. Negative: JVD/HJR Cardiac: Positive: Regular Rate, S1/S2, PMI, Laterally Displaced Lungs: Positive: clear to auscultation, No Wheeze, Rales, Rhonchi Neuro: Positive: Grossly Intact Abdomen: Positive: Unremarkable, Soft Extremities: Present: normal (No hematoma noted cardiac cath site ). Absent: edema - Labs and Meds CBC 09/26/16 Range/Units 05:14 WBC 6.7 (4.5-11.0) K/mm3 RBC 2.92 L (3.65-5.03) M/mm3 Hgb 8.7 L (10.1-14.3) gm/dl Hct 26.3 L (30.3-42.9) % Plt Count 297 (140-440) K/mm3 Comprehensive Metabolic Panel 09/26/16 Range/Units 05:14 Sodium 139 (137-145) mmol/L Potassium 4.1 (3.6-5.0) mmol/L Chloride 96.9 L (98-107) mmol/L Carbon Dioxide 26 (22-30) mmol/L BUN 15 (7-17) mg/dL Creatinine 4.8 H (0.7-1.2) mg/dL Glucose 74 (65-100) mg/dL Calcium 8.0 L (8.4-10.2) mg/dL
--- NOTE | 2016-09-26 15:12 | Progress Note ---
Assessment and Plan Assessment and plan: Patient is a 66-year-old woman with a history of end-stage renal disease on hemodialysis mwf, AOCD, hypertension, left kidney mass reported as benign (has ablation scheduled for September 25) and GERD from [place], [place] (outside of [place]) who is visiting [place] to vist her daughter, Sharee, at bedside. She did not verify her hemodialysis setup in the [place] area prior to visiting (counseling done). She had missed multiple hemodialysis session and presents severe progressive constant nonradiating, sob at rest. She denies chest pain, productive cough, fevers or chills, abdominal pain or nausea/vomiting. She was found to have severe tachycardia and SVT given adenosine and converted to a flutter with RVR. Chest x-ray reported as Cardiomegaly and there are right lower lobe infiltrates. There is tiny right pleural effusion. VQ scan lungs: Low probability for PE. -End-stage renal disease, noncompliant with hemodialysis: Consulted nephrology for dialysis, Counseled on compliance -Right lower lobe aspiration pneumonitis with evidence of fluid overload from missing dialysis: Treat with antibiotics, she was given Levaquin started having itching reaction, added as an Allergy -Aflutter with RVR: Cardiology consulted -DVT: scd and sq heparin Patient has left kidney ablation on Wednesday in [facility], she had chronic pains from this Asked Cardiology ?anticoagulation==>no b/c recent gib that patient didnt reveal upon admission 09/23/16 She developed cp since I saw her this morning. Get stat ekg, ce/t==> When I reviewed EKG, I informed the nurse to call Cardiology for supicious STEMI anterior leads. I was told by the RN that Cardiology had reviewed the EKG and troponin was critical. Patient continued to have chest pains so I called RAVINDRA Garland and I asked her did Cardiology see the patient and her EKG. Dada told me that patient wasn't in the room and chart/EKG wasn't available to be reviewed but Dr. Ferreira is still in the hospital, whom I called. He reviewed the EKG with me at nursing station and patient went emergently to Cardiac cath== >She had PCI of RCA with bare metal stent but EKG showed anterior STEMI? The st elevation in anterior leads may have been vasospasm per Dr. Ferreira or not a true STEMI. I am told once the stent was placed the chest pains went immediately away. per Cardiology: Atrial flutter with RVR now reverted to sinus rhythm and maintaining NSR on cardizem and coreg Pneumonia Hypertension - improving Borderline elevated troponin, non specific likely due to renal failure ESRD on hemodylasis and non compliance Anemia Recent GI bleed per patient, while hospitalized in [place] Chest pain with dynamic ST/T wave changes requiring urgent cardiac cath CAD S/P PCI of the RCA with BMS Recommendations: 1. Continue baby aspirin indefinitely 2. Plavix for 6 week more if patient tolerates ( monitor for lower GI bleed ) 3. High intensity statins 4. Continue coreg 5. Change cardizem to long acting cardizem CD 180 mg 6. Dialysis today 7. Can DC home from cardiac standpoint after dialysis 8. Cardiology follow up in one week Awaiting on HD setup History Interval history: Patient seen and examined. Follow up on sob, better. Yesterday was eventful. with cp, No cp now, n/v or severe headaches. Imaging, old records, testing, labs, nursing notes reviewed. Hospitalist Physical - Physical exam Narrative exam: GEN: WDWN, NAD, AWAKE, ALERT, ORIENTATED x 3 CVS: Regular irregular NORMAL S1S2 LUNGS/CHEST: Bibasilar crackles, NORMAL CHEST EXPANSION B, GOOD AIR ENTRY B ABD: SOFT, NTND, GBS, NO REBOUND OR GUARDING EXT/SKIN: NO SIGNIFICANT EDEMA OR RASH MSK: FROM X 4 EXTREMITIES NEURO: CN 2-12 GROSSLY INTACT, NO FOCAL DEFICITS PSY: CALM - Constitutional Vitals: Temp Pulse Resp BP Pulse Ox 98.9 F 61 12 125/58 100 09/26/16 07:15 09/26/16 14:13 09/26/16 07:15 09/26/16 14:13 09/26/16 07:15 General appearance: Present: no acute distress, well-nourished Results - Labs CBC & Chem 7: 09/26/16 05:14 09/26/16 05:14 Labs: Laboratory Last Values WBC 6.7 K/mm3 (4.5-11.0) 09/26/16 05:14 RBC 2.92 M/mm3 (3.65-5.03) L 09/26/16 05:14 Hgb 8.7 gm/dl (10.1-14.3) L 09/26/16 05:14 Hct 26.3 % (30.3-42.9) L 09/26/16 05:14 MCV 90 fl (79-97) 09/26/16 05:14 MCH 30 pg (28-32) 09/26/16 05:14 MCHC 33 % (30-34) 09/26/16 05:14 RDW 15.9 % (13.2-15.2) H 09/26/16 05:14 Plt Count 297 K/mm3 (140-440) 09/26/16 05:14 Lymph % (Auto) 24.6 % (13.4-35.0) 09/25/16 04:49 [place] % (Auto) 12.9 % (0.0-7.3) H 09/25/16 04:49 Eos % (Auto) 3.5 % (0.0-4.3) 09/25/16 04:49 Baso % (Auto) 1.2 % (0.0-1.8) 09/25/16 04:49 Lymph # 1.4 K/mm3 (1.2-5.4) 09/25/16 04:49 [place] # 0.7 K/mm3 (0.0-0.8) 09/25/16 04:49 Eos # 0.2 K/mm3 (0.0-0.4) 09/25/16 04:49 Baso # 0.1 K/mm3 (0.0-0.1) 09/25/16 04:49 Seg Neutrophils % 57.8 % (40.0-70.0) 09/25/16 04:49 Seg Neutrophils # 3.3 K/mm3 (1.8-7.7) 09/25/16 04:49 Activated Clotting Time 180 (74-137) H 09/24/16 21:38 Sodium 139 mmol/L (137-145) 09/26/16 05:14 Potassium 4.1 mmol/L (3.6-5.0) 09/26/16 05:14 Chloride 96.9 mmol/L (98-107) L 09/26/16 05:14 Carbon Dioxide 26 mmol/L (22-30) 09/26/16 05:14 Anion Gap 20 mmol/L 09/26/16 05:14 BUN 15 mg/dL (7-17) 09/26/16 05:14 Creatinine 4.8 mg/dL (0.7-1.2) H 09/26/16 05:14 Estimated GFR 11 ml/min 09/26/16 05:14 BUN/Creatinine Ratio 3.12 % 09/26/16 05:14 Glucose 74 mg/dL (65-100) 09/26/16 05:14 POC Glucose 258 (70-105) H 09/25/16 23:14 Calcium 8.0 mg/dL (8.4-10.2) L 09/26/16 05:14 Magnesium 2.20 mg/dL (1.7-2.3) 09/23/16 06:54 Total Creatine Kinase 696 units/L (30-135) H 09/25/16 04:49 CK-MB (CK-2) 63.3 ng/mL (0.0-4.0) H 09/25/16 04:49 CK-MB (CK-2) Rel Index 9.0 (0-4) H 09/25/16 04:49 Troponin T 3.110 ng/mL (0.00-0.029) H* 09/25/16 04:49 NT-Pro-B Natriuret Pep 16302 pg/mL (0-900) H 09/22/16 04:36 Triglycerides 94 mg/dL (2-149) 09/22/16 04:36 Cholesterol 224 mg/dL (50-199) H 09/22/16 04:36 LDL Cholesterol Direct 121 mg/dL (50-130) 09/22/16 04:36 HDL Cholesterol 85 mg/dL (40-59) H 09/22/16 04:36 Cholesterol/HDL Ratio 2.63 % 09/22/16 04:36 TSH 0.789 mlU/mL (0.270-4.200) 09/23/16 06:54
[2016-09-27] MEDS: CARDIZEM PO SCH ×4 (00:09→18:32)
--- NOTE | 2016-09-27 09:55 | Progress Note ---
Assessment and Plan - Patient Problems (1) ESRD (end stage renal disease) on dialysis Current Visit: Yes Status: Chronic Plan to address problem: Continue hemodialysis MWF, last dialyzed yesterday. Need transient outpatient hemodialysis setup. (2) Acute VT Current Visit: Yes Status: Acute Qualifiers: Myocardial infarction ST status: M Involved coronary artery: I Plan to address problem: S/p PCI. (3) Right pulmonary infiltrate on CXR Current Visit: Yes Status: Acute Plan to address problem: On Ceftriaxone and Azithromycin. (4) Atrial flutter Current Visit: Yes Status: Acute Qualifiers: Atrial flutter type: A Plan to address problem: SR now. (5) Anemia Current Visit: Yes Status: Chronic Qualifiers: Anemia type: A Iron deficiency anemia type: I Vitamin B12 deficiency anemia type: V Folate deficiency anemia type: F Bone marrow failure anemia type: B Hemolytic anemia type: H Other causes of anemia: O Chronic kidney disease stage: on chronic dialysis Qualified Code(s): N18.6 - End stage renal disease; D63.1 - Anemia in chronic kidney disease; Z99.2 - Dependence on renal dialysis Plan to address problem: Epogen. (6) HTN (hypertension) Current Visit: Yes Status: Acute Qualifiers: Hypertension type: H Plan to address problem: BP is fair. (7) Neoplasm of left kidney Current Visit: Yes Status: Chronic Plan to address problem: Patient was advised to reschedule her appt for ablation at [place]. Subjective Date of service: 09/27/16 Principal diagnosis: CAD Interval history: Patient is doing ok. Objective - Vital Signs Vital signs: Vital Signs - 12hr 09/26/16 09/26/16 09/26/16 21:58 21:59 22:02 Temperature Pulse Rate 67 Pulse Rate [ Right Radial] Respiratory 18 Rate Respiratory 18 Rate [Back] Blood Pressure 140/62 Blood Pressure [Right Arm] O2 Sat by Pulse Oximetry 09/26/16 09/27/16 09/27/16 22:58 00:09 00:44 Temperature 98.8 F Pulse Rate 58 L Pulse Rate [ 58 L Right Radial] Respiratory 20 18 Rate Respiratory Rate [Back] Blood Pressure 130/60 Blood Pressure 130/60 [Right Arm] O2 Sat by Pulse 98 Oximetry 09/27/16 09/27/16 09/27/16 04:49 05:38 08:00 Temperature 98.8 F 98.2 F Pulse Rate 59 L Pulse Rate [ 59 L 56 L Right Radial] Respiratory 18 20 Rate Respiratory Rate [Back] Blood Pressure 129/60 Blood Pressure 129/60 134/61 [Right Arm] O2 Sat by Pulse 100 100 Oximetry - General Appearance General appearance: well-developed, appears stated age, frail, other (no distress) EENT: ATNC, PERRL, mucous membranes moist, hearing intact, vision intact Neck: supple Respiratory: Present: Clear to Ascultation Cardiology: regular, S1S2, faint heart tones Gastrointestinal: normoactive bowel sounds, no tenderness, no distended Integumentary: no rash Neurologic: no focal deficit, no asterixis, alert and oriented x3, CN 3-12 intact Musculoskeletal: other (no edema) Psychiatric: mood/affect appropriate, cooperative - Lab 09/27/16 09:16 09/27/16 09:16 Most recent lab results Calcium 8.0 mg/dL (8.4-10.2) L 09/26/16 05:14 Magnesium 2.20 mg/dL (1.7-2.3) 09/23/16 06:54
[2016-09-27 10:01] LABS: Hematocrit 26.3 % (30.3-42.9); Hemoglobin 8.8 gm/dl (10.1-14.3); Mean Corpuscular HGB Conc 33 % (30-34); Mean Corpuscular Hemoglobin 30 pg (28-32); Mean Corpuscular Volume 90 fl (79-97); Platelet Count 341 K/mm3 (140-440); Red Blood Count 2.94 M/mm3 (3.65-5.03); Red Cell Distribution Width 16.4 % (13.2-15.2); White Blood Count 6.8 K/mm3 (4.5-11.0)
[2016-09-27 10:20] LABS: BUN/Creatinine Ratio 2.89; Calcium 7.8 mg/dL (8.4-10.2); Chloride 98.9 mmol/L (98-107); Potassium 3.9 mmol/L (3.6-5.0)
[2016-09-27] MEDS: BABY ASPIRIN PO SCH (10:27)
[2016-09-27] MEDS: ROCEPHIN/NS 1 GM/50 ML 1 GM/50 ML BAG IV SCH (10:27)
[2016-09-27] MEDS: PROTONIX PO SCH (10:27)
[2016-09-27] MEDS: PLAVIX PO SCH (10:27)
[2016-09-27] MEDS: SENSIPAR PO SCH (10:27)
[2016-09-27] MEDS: ZESTRIL PO SCH (10:28)
[2016-09-27] MEDS: COREG PO SCH ×2 (10:29→22:45)
[2016-09-27] MEDS: HEPARIN SUB-Q SCH ×2 (10:30→22:44)
--- NOTE | 2016-09-27 10:33 | Progress Note ---
Assessment and Plan 1. Arthrosclerotic heart disease status post PCI to the right coronary artery using a bare-metal stent. 2. Paroxysmal atrial fibrillation and flutter currently in sinus rhythm 3. Essential hypertension 4. End-stage renal disease on hemodialysis 5. Anemia probably secondary to chronic disease 6. S/P SVT Plan. Cardiac-grimm stable continue present medication. No evidence of GI bleeds on antiplatelet therapy. Subjective Date of service: 09/27/16 Principal diagnosis: CAD Interval history: Patient feels fine and wants to go home. Objective Vital Signs Temp Pulse Pulse Pulse Pulse Pulse Pulse 09/27/16 10:29 56 L 09/27/16 10:28 56 L 09/27/16 08:00 98.2 F 56 L 09/27/16 05:38 59 L 09/27/16 04:49 98.8 F 59 L 09/27/16 00:44 98.8 F 58 L 09/27/16 00:09 58 L 09/26/16 22:58 09/26/16 22:02 09/26/16 21:59 67 09/26/16 21:58 09/26/16 20:22 98.9 F 67 09/26/16 20:10 09/26/16 19:59 66 09/26/16 18:53 98.7 F 73 61 61 61 61 09/26/16 18:40 63 09/26/16 15:15 98.7 F 60 80 80 80 84 09/26/16 14:13 61 Resp Resp BP BP Pulse Ox 09/27/16 10:29 134/61 09/27/16 10:28 134/61 09/27/16 08:00 20 134/61 100 09/27/16 05:38 129/60 09/27/16 04:49 18 129/60 100 09/27/16 00:44 18 130/60 98 09/27/16 00:09 130/60 09/26/16 22:58 20 09/26/16 22:02 18 09/26/16 21:59 140/62 09/26/16 21:58 18 09/26/16 20:22 20 140/62 98 09/26/16 20:10 20 98 09/26/16 19:59 09/26/16 18:53 14 125/58 99 09/26/16 18:40 122/57 09/26/16 15:15 12 125/58 99 09/26/16 14:13 125/58 - Physical Examination General: Appears Well, No Apparent Distress HEENT: Positive: Normocephaly Neck: Positive: neck supple, trachea midline. Negative: JVD/HJR Cardiac: Positive: Regular Rate, S1/S2, PMI, Laterally Displaced. Negative: S3 Lungs: Positive: clear to auscultation, No Wheeze, Rales, Rhonchi Neuro: Positive: Grossly Intact Abdomen: Positive: Unremarkable, Soft Extremities: Present: normal (No hematoma noted cardiac cath site ). Absent: edema - Labs and Meds CBC 09/27/16 Range/Units 09:16 WBC 6.8 (4.5-11.0) K/mm3 RBC 2.94 L (3.65-5.03) M/mm3 Hgb 8.8 L (10.1-14.3) gm/dl Hct 26.3 L (30.3-42.9) % Plt Count 341 (140-440) K/mm3 Comprehensive Metabolic Panel 09/27/16 Range/Units 09:16 Sodium 142 (137-145) mmol/L Potassium 3.9 (3.6-5.0) mmol/L Chloride 98.9 (98-107) mmol/L Carbon Dioxide 23 (22-30) mmol/L BUN 22 H (7-17) mg/dL Creatinine 7.6 H D (0.7-1.2) mg/dL Glucose 81 (65-100) mg/dL Calcium 7.8 L (8.4-10.2) mg/dL - Telemetry EKG Rhythm: Sinus Rhythm
[2016-09-27] MEDS: PERCOCET 5/325 PO PRN ×2 (10:38→22:42)
[2016-09-27] MEDS: ZITHROMAX 500 MG in NACL 0.9% 250ML 250 ML IV SCH (11:00)
--- NOTE | 2016-09-27 15:12 | Progress Note ---
Assessment and Plan Assessment and plan: Patient is a 66-year-old woman with a history of end-stage renal disease on hemodialysis mwf, AOCD, hypertension, left kidney mass reported as benign (has ablation scheduled for September 25) and GERD from [place], [place] (outside of [place]) who is visiting [place] to vist her daughter, Sharee, at bedside. She did not verify her hemodialysis setup in the [place] area prior to visiting (counseling done). She had missed multiple hemodialysis session and presents severe progressive constant nonradiating, sob at rest. She denies chest pain, productive cough, fevers or chills, abdominal pain or nausea/vomiting. She was found to have severe tachycardia and SVT given adenosine and converted to a flutter with RVR. Chest x-ray reported as Cardiomegaly and there are right lower lobe infiltrates. There is tiny right pleural effusion. VQ scan lungs: Low probability for PE. -End-stage renal disease, noncompliant with hemodialysis: Consulted nephrology for dialysis, Counseled on compliance -Right lower lobe aspiration pneumonitis with evidence of fluid overload from missing dialysis: Treat with antibiotics, she was given Levaquin started having itching reaction, added as an Allergy -Aflutter with RVR: Cardiology consulted -DVT: scd and sq heparin Patient has left kidney ablation on Wednesday in [facility], she had chronic pains from this Asked Cardiology ?anticoagulation==>no b/c recent gib that patient didnt reveal upon admission 09/23/16 She developed cp since I saw her this morning. Get stat ekg, ce/t==> When I reviewed EKG, I informed the nurse to call Cardiology for supicious STEMI anterior leads. I was told by the RN that Cardiology had reviewed the EKG and troponin was critical. Patient continued to have chest pains so I called RAVINDRA Garland and I asked her did Cardiology see the patient and her EKG. Dada told me that patient wasn't in the room and chart/EKG wasn't available to be reviewed but Dr. Ferreira is still in the hospital, whom I called. He reviewed the EKG with me at nursing station and patient went emergently to Cardiac cath== >She had PCI of RCA with bare metal stent but EKG showed anterior STEMI? The st elevation in anterior leads may have been vasospasm per Dr. Ferreira or not a true STEMI. I am told once the stent was placed the chest pains went immediately away. per Cardiology: Atrial flutter with RVR now reverted to sinus rhythm and maintaining NSR on cardizem and coreg Pneumonia Hypertension - improving Borderline elevated troponin, non specific likely due to renal failure ESRD on hemodylasis and non compliance Anemia Recent GI bleed per patient, while hospitalized in [place] Chest pain with dynamic ST/T wave changes requiring urgent cardiac cath CAD S/P PCI of the RCA with BMS Recommendations: 1. Continue baby aspirin indefinitely 2. Plavix for 6 week more if patient tolerates ( monitor for lower GI bleed ) 3. High intensity statins 4. Continue coreg 5. Change cardizem to long acting cardizem CD 180 mg 6. Dialysis today 7. Can DC home from cardiac standpoint after dialysis 8. Cardiology follow up in one week Awaiting on HD setup History Interval history: Patient seen and examined. Follow up on sob, better. Yesterday was eventful. with cp, No cp now, n/v or severe headaches. Imaging, old records, testing, labs, nursing notes reviewed. Hospitalist Physical - Physical exam Narrative exam: GEN: WDWN, NAD, AWAKE, ALERT, ORIENTATED x 3 CVS: Regular irregular NORMAL S1S2 LUNGS/CHEST: Bibasilar crackles, NORMAL CHEST EXPANSION B, GOOD AIR ENTRY B ABD: SOFT, NTND, GBS, NO REBOUND OR GUARDING EXT/SKIN: NO SIGNIFICANT EDEMA OR RASH MSK: FROM X 4 EXTREMITIES NEURO: CN 2-12 GROSSLY INTACT, NO FOCAL DEFICITS PSY: CALM - Constitutional Vitals: Temp Pulse Resp BP Pulse Ox 98.4 F 55 L 18 130/62 99 09/27/16 12:00 09/27/16 13:45 09/27/16 12:00 09/27/16 13:45 09/27/16 12:00 General appearance: Present: no acute distress, well-nourished Results - Labs CBC & Chem 7: 09/27/16 09:16 09/27/16 09:16 Labs: Laboratory Last Values WBC 6.8 K/mm3 (4.5-11.0) 09/27/16 09:16 RBC 2.94 M/mm3 (3.65-5.03) L 09/27/16 09:16 Hgb 8.8 gm/dl (10.1-14.3) L 09/27/16 09:16 Hct 26.3 % (30.3-42.9) L 09/27/16 09:16 MCV 90 fl (79-97) 09/27/16 09:16 MCH 30 pg (28-32) 09/27/16 09:16 MCHC 33 % (30-34) 09/27/16 09:16 RDW 16.4 % (13.2-15.2) H 09/27/16 09:16 Plt Count 341 K/mm3 (140-440) 09/27/16 09:16 Lymph % (Auto) 24.6 % (13.4-35.0) 09/25/16 04:49 [place] % (Auto) 12.9 % (0.0-7.3) H 09/25/16 04:49 Eos % (Auto) 3.5 % (0.0-4.3) 09/25/16 04:49 Baso % (Auto) 1.2 % (0.0-1.8) 09/25/16 04:49 Lymph # 1.4 K/mm3 (1.2-5.4) 09/25/16 04:49 [place] # 0.7 K/mm3 (0.0-0.8) 09/25/16 04:49 Eos # 0.2 K/mm3 (0.0-0.4) 09/25/16 04:49 Baso # 0.1 K/mm3 (0.0-0.1) 09/25/16 04:49 Seg Neutrophils % 57.8 % (40.0-70.0) 09/25/16 04:49 Seg Neutrophils # 3.3 K/mm3 (1.8-7.7) 09/25/16 04:49 Activated Clotting Time 180 (74-137) H 09/24/16 21:38 Sodium 142 mmol/L (137-145) 09/27/16 09:16 Potassium 3.9 mmol/L (3.6-5.0) 09/27/16 09:16 Chloride 98.9 mmol/L (98-107) 09/27/16 09:16 Carbon Dioxide 23 mmol/L (22-30) 09/27/16 09:16 Anion Gap 24 mmol/L 09/27/16 09:16 BUN 22 mg/dL (7-17) H 09/27/16 09:16 Creatinine 7.6 mg/dL (0.7-1.2) H D 09/27/16 09:16 Estimated GFR 6 ml/min 09/27/16 09:16 BUN/Creatinine Ratio 2.89 % 09/27/16 09:16 Glucose 81 mg/dL (65-100) 09/27/16 09:16 POC Glucose 148 (70-105) H 09/27/16 11:25 Calcium 7.8 mg/dL (8.4-10.2) L 09/27/16 09:16 Magnesium 2.20 mg/dL (1.7-2.3) 09/23/16 06:54 Total Creatine Kinase 696 units/L (30-135) H 09/25/16 04:49 CK-MB (CK-2) 63.3 ng/mL (0.0-4.0) H 09/25/16 04:49 CK-MB (CK-2) Rel Index 9.0 (0-4) H 09/25/16 04:49 Troponin T 3.110 ng/mL (0.00-0.029) H* 09/25/16 04:49 NT-Pro-B Natriuret Pep 04214 pg/mL (0-900) H 09/22/16 04:36 Triglycerides 94 mg/dL (2-149) 09/22/16 04:36 Cholesterol 224 mg/dL (50-199) H 09/22/16 04:36 LDL Cholesterol Direct 121 mg/dL (50-130) 09/22/16 04:36 HDL Cholesterol 85 mg/dL (40-59) H 09/22/16 04:36 Cholesterol/HDL Ratio 2.63 % 09/22/16 04:36 TSH 0.789 mlU/mL (0.270-4.200) 09/23/16 06:54
[2016-09-28] MEDS: CARDIZEM PO SCH ×3 (00:28→13:32)
--- NOTE | 2016-09-28 08:33 | Progress Note ---
Assessment and Plan - Patient Problems (1) ESRD (end stage renal disease) on dialysis Status: Chronic Plan to address problem: Continue hemodialysis on [facility]. (2) Acute MS Status: Acute Qualifiers: Myocardial infarction ST status: M Involved coronary artery: I Plan to address problem: S/p PCI. (3) Right pulmonary infiltrate on CXR Status: Acute (4) Atrial flutter Status: Acute Qualifiers: Atrial flutter type: A Plan to address problem: SR now. (5) Anemia Status: Chronic Qualifiers: Anemia type: A Iron deficiency anemia type: I Vitamin B12 deficiency anemia type: V Folate deficiency anemia type: F Bone marrow failure anemia type: B Hemolytic anemia type: H Other causes of anemia: O Chronic kidney disease stage: on chronic dialysis Qualified Code(s): N18.6 - End stage renal disease; D63.1 - Anemia in chronic kidney disease; Z99.2 - Dependence on renal dialysis Plan to address problem: Epogen. (6) HTN (hypertension) Status: Acute Qualifiers: Hypertension type: H Plan to address problem: BP is fair. (7) Neoplasm of left kidney Status: Chronic Plan to address problem: Patient was advised to reschedule her appt for ablation at [place]. Subjective Date of service: 09/28/16 Principal diagnosis: CAD Interval history: Patient is doing ok. Objective - Vital Signs Vital signs: Vital Signs - 12hr 09/27/16 09/27/16 09/27/16 22:42 22:45 22:49 Temperature Pulse Rate 57 L Pulse Rate [ Right Radial] Respiratory 20 Rate Respiratory 20 Rate [Back] Blood Pressure Blood Pressure [Right Arm] O2 Sat by Pulse Oximetry 09/27/16 09/28/16 09/28/16 23:42 00:28 01:06 Temperature 97.6 F Pulse Rate 59 L Pulse Rate [ 59 L Right Radial] Respiratory 20 18 Rate Respiratory Rate [Back] Blood Pressure 153/65 Blood Pressure 153/65 [Right Arm] O2 Sat by Pulse 100 Oximetry 09/28/16 09/28/16 05:24 07:00 Temperature 98.9 F Pulse Rate 64 Pulse Rate [ 64 Right Radial] Respiratory 20 Rate Respiratory Rate [Back] Blood Pressure 140/68 Blood Pressure 140/68 [Right Arm] O2 Sat by Pulse 98 Oximetry - General Appearance General appearance: well-developed, appears stated age, other (no distress) EENT: ATNC, PERRL Neck: supple Respiratory: Present: Clear to Ascultation Cardiology: regular, S1S2, no murmurs Gastrointestinal: normoactive bowel sounds, no tenderness Integumentary: no rash Neurologic: no focal deficit, no asterixis, alert and oriented x3 Musculoskeletal: other (no edema, left arm AVF) Psychiatric: mood/affect appropriate, cooperative - Lab 09/27/16 09:16 09/27/16 09:16 Most recent lab results Calcium 7.8 mg/dL (8.4-10.2) L 09/27/16 09:16 Magnesium 2.20 mg/dL (1.7-2.3) 09/23/16 06:54
--- NOTE | 2016-09-28 13:19 | Progress Note ---
Assessment and Plan Atrial flutter with RVR now reverted to sinus rhythm considered not a candidate for anticoagulation due to recent GI bleeding Acute STEMI s/p PCI of the RCA with BMS. On plavix and aspirin Pneumonia Hypertension -uncontrolled Borderline elevated troponin, non specific likely due to renal failure ESRD on hemodylasis and non compliance Anemia Recent GI bleed per patient Echo is pertinent for progressive mitral stenosis and mild aortic stenosis, heavily calcified valves. EF 65-70%. Recommendations: Continue cardizem for suppression of Afib. Volume management through hemodialysis. Continue aspirin, plavix, statin and beta kit therapy for coronary artery disease. Can D/C home from cardiac standpoint. Subjective Date of service: 09/28/16 Principal diagnosis: CAD Interval history: Patient denies chest pain and shortness of breath. Objective Vital Signs Temp Pulse Pulse Resp Resp BP BP 09/28/16 12:56 98.5 F 59 L 18 134/63 09/28/16 10:47 09/28/16 09:31 98.5 F 57 L 18 158/72 09/28/16 07:00 64 140/68 09/28/16 05:24 98.9 F 64 20 140/68 09/28/16 01:06 97.6 F 59 L 18 153/65 09/28/16 00:28 59 L 153/65 09/27/16 23:42 20 09/27/16 22:49 20 09/27/16 22:45 57 L 09/27/16 22:42 20 09/27/16 20:20 98.7 F 58 L 20 146/63 09/27/16 20:07 09/27/16 19:40 24 09/27/16 19:10 58 L 09/27/16 18:32 63 113/56 09/27/16 16:00 98.0 F 63 18 113/56 09/27/16 13:45 55 L 130/62 Pulse Ox 09/28/16 12:56 09/28/16 10:47 100 09/28/16 09:31 09/28/16 07:00 09/28/16 05:24 98 09/28/16 01:06 100 09/28/16 00:28 09/27/16 23:42 09/27/16 22:49 09/27/16 22:45 09/27/16 22:42 09/27/16 20:20 100 09/27/16 20:07 99 09/27/16 19:40 98 09/27/16 19:10 09/27/16 18:32 09/27/16 16:00 97 09/27/16 13:45 - Physical Examination General: No Apparent Distress Neck: Positive: trachea midline Cardiac: Positive: Reg Rate and Rhythm Neuro: Positive: Grossly Intact Extremities: Absent: edema
[2016-09-28] MEDS: SENSIPAR PO SCH (13:26)
[2016-09-28] MEDS: PERCOCET 5/325 PO PRN (13:26)
[2016-09-28] MEDS: PLAVIX PO SCH (13:27)
[2016-09-28] MEDS: PROTONIX PO SCH (13:27)
[2016-09-28] MEDS: HEPARIN SUB-Q SCH (13:27)
[2016-09-28] MEDS: COREG PO SCH (13:28)
[2016-09-28] MEDS: ZESTRIL PO SCH (13:32)
[2016-09-28] MEDS: BABY ASPIRIN PO SCH (13:56)
[2016-09-28] MEDS: ZITHROMAX 500 MG in NACL 0.9% 250ML 250 ML IV SCH (13:57)
[2016-09-28] MEDS: ROCEPHIN/NS 1 GM/50 ML 1 GM/50 ML BAG IV SCH (14:27)
--- NOTE | 2016-09-28 16:05 | Progress Note ---
Assessment and Plan Assessment and plan: Patient is a 66-year-old woman with a history of end-stage renal disease on hemodialysis mwf, AOCD, hypertension, left kidney mass reported as benign (has ablation scheduled for September 25) and GERD from [place], [place] (outside of [place]) who is visiting [place] to vist her daughter, Sharee, at bedside. She did not verify her hemodialysis setup in the [place] area prior to visiting (counseling done). She had missed multiple hemodialysis session and presents severe progressive constant nonradiating, sob at rest. She denies chest pain, productive cough, fevers or chills, abdominal pain or nausea/vomiting. She was found to have severe tachycardia and SVT given adenosine and converted to a flutter with RVR. Chest x-ray reported as Cardiomegaly and there are right lower lobe infiltrates. There is tiny right pleural effusion. VQ scan lungs: Low probability for PE. -End-stage renal disease, noncompliant with hemodialysis: Consulted nephrology for dialysis, Counseled on compliance -Right lower lobe aspiration pneumonitis with evidence of fluid overload from missing dialysis: Treat with antibiotics, she was given Levaquin started having itching reaction, added as an Allergy -Aflutter with RVR: Cardiology consulted -DVT: scd and sq heparin Patient has left kidney ablation on Wednesday in [facility], she had chronic pains from this Asked Cardiology ?anticoagulation==>no b/c recent gib that patient didnt reveal upon admission 09/23/16 She developed cp since I saw her this morning. Get stat ekg, ce/t==> When I reviewed EKG, I informed the nurse to call Cardiology for supicious STEMI anterior leads. I was told by the RN that Cardiology had reviewed the EKG and troponin was critical. Patient continued to have chest pains so I called RAVINDRA Garland and I asked her did Cardiology see the patient and her EKG. Dada told me that patient wasn't in the room and chart/EKG wasn't available to be reviewed but Dr. Ferreira is still in the hospital, whom I called. He reviewed the EKG with me at nursing station and patient went emergently to Cardiac cath== >She had PCI of RCA with bare metal stent but EKG showed anterior STEMI? The st elevation in anterior leads may have been vasospasm per Dr. Ferreira or not a true STEMI. I am told once the stent was placed the chest pains went immediately away. per Cardiology: Atrial flutter with RVR now reverted to sinus rhythm and maintaining NSR on cardizem and coreg Pneumonia Hypertension - improving Borderline elevated troponin, non specific likely due to renal failure ESRD on hemodylasis and non compliance Anemia Recent GI bleed per patient, while hospitalized in [place] Chest pain with dynamic ST/T wave changes requiring urgent cardiac cath CAD S/P PCI of the RCA with BMS Recommendations: 1. Continue baby aspirin indefinitely 2. Plavix for 6 week more if patient tolerates ( monitor for lower GI bleed ) 3. High intensity statins 4. Continue coreg 5. Change cardizem to long acting cardizem CD 180 mg 6. Dialysis today 7. Can DC home from cardiac standpoint after dialysis 8. Cardiology follow up in one week Awaiting on HD setup, difficult because she is from [place] and they may or may not plan on going back History Interval history: Patient seen and examined. Follow up on sob, better. Yesterday was eventful. with cp, No cp now, n/v or severe headaches. Imaging, old records, testing, labs, nursing notes reviewed. Hospitalist Physical - Physical exam Narrative exam: GEN: WDWN, NAD, AWAKE, ALERT, ORIENTATED x 3 CVS: Regular irregular NORMAL S1S2 LUNGS/CHEST: Bibasilar crackles, NORMAL CHEST EXPANSION B, GOOD AIR ENTRY B ABD: SOFT, NTND, GBS, NO REBOUND OR GUARDING EXT/SKIN: NO SIGNIFICANT EDEMA OR RASH MSK: FROM X 4 EXTREMITIES NEURO: CN 2-12 GROSSLY INTACT, NO FOCAL DEFICITS PSY: CALM - Constitutional Vitals: Temp Pulse Resp BP Pulse Ox 98.5 F 62 18 134/63 100 09/28/16 12:56 09/28/16 13:32 09/28/16 12:56 09/28/16 12:56 09/28/16 10:47 General appearance: Present: no acute distress, well-nourished Results - Labs CBC & Chem 7: 09/27/16 09:16 09/27/16 09:16 Labs: Laboratory Last Values WBC 6.8 K/mm3 (4.5-11.0) 09/27/16 09:16 RBC 2.94 M/mm3 (3.65-5.03) L 09/27/16 09:16 Hgb 8.8 gm/dl (10.1-14.3) L 09/27/16 09:16 Hct 26.3 % (30.3-42.9) L 09/27/16 09:16 MCV 90 fl (79-97) 09/27/16 09:16 MCH 30 pg (28-32) 09/27/16 09:16 MCHC 33 % (30-34) 09/27/16 09:16 RDW 16.4 % (13.2-15.2) H 09/27/16 09:16 Plt Count 341 K/mm3 (140-440) 09/27/16 09:16 Lymph % (Auto) 24.6 % (13.4-35.0) 09/25/16 04:49 [place] % (Auto) 12.9 % (0.0-7.3) H 09/25/16 04:49 Eos % (Auto) 3.5 % (0.0-4.3) 09/25/16 04:49 Baso % (Auto) 1.2 % (0.0-1.8) 09/25/16 04:49 Lymph # 1.4 K/mm3 (1.2-5.4) 09/25/16 04:49 [place] # 0.7 K/mm3 (0.0-0.8) 09/25/16 04:49 Eos # 0.2 K/mm3 (0.0-0.4) 09/25/16 04:49 Baso # 0.1 K/mm3 (0.0-0.1) 09/25/16 04:49 Seg Neutrophils % 57.8 % (40.0-70.0) 09/25/16 04:49 Seg Neutrophils # 3.3 K/mm3 (1.8-7.7) 09/25/16 04:49 Activated Clotting Time 180 (74-137) H 09/24/16 21:38 Sodium 142 mmol/L (137-145) 09/27/16 09:16 Potassium 3.9 mmol/L (3.6-5.0) 09/27/16 09:16 Chloride 98.9 mmol/L (98-107) 09/27/16 09:16 Carbon Dioxide 23 mmol/L (22-30) 09/27/16 09:16 Anion Gap 24 mmol/L 09/27/16 09:16 BUN 22 mg/dL (7-17) H 09/27/16 09:16 Creatinine 7.6 mg/dL (0.7-1.2) H D 09/27/16 09:16 Estimated GFR 6 ml/min 09/27/16 09:16 BUN/Creatinine Ratio 2.89 % 09/27/16 09:16 Glucose 81 mg/dL (65-100) 09/27/16 09:16 POC Glucose 97 (70-105) 09/27/16 21:23 Calcium 7.8 mg/dL (8.4-10.2) L 09/27/16 09:16 Magnesium 2.20 mg/dL (1.7-2.3) 09/23/16 06:54 Total Creatine Kinase 696 units/L (30-135) H 09/25/16 04:49 CK-MB (CK-2) 63.3 ng/mL (0.0-4.0) H 09/25/16 04:49 CK-MB (CK-2) Rel Index 9.0 (0-4) H 09/25/16 04:49 Troponin T 3.110 ng/mL (0.00-0.029) H* 09/25/16 04:49 NT-Pro-B Natriuret Pep 81983 pg/mL (0-900) H 09/22/16 04:36 Triglycerides 94 mg/dL (2-149) 09/22/16 04:36 Cholesterol 224 mg/dL (50-199) H 09/22/16 04:36 LDL Cholesterol Direct 121 mg/dL (50-130) 09/22/16 04:36 HDL Cholesterol 85 mg/dL (40-59) H 09/22/16 04:36 Cholesterol/HDL Ratio 2.63 % 09/22/16 04:36 TSH 0.789 mlU/mL (0.270-4.200) 09/23/16 06:54
[2016-09-28] MEDS ORDERED: NACL 0.9 (PRIMING MACHINE ONLY DIALYSIS) MC ONE (18:00)
[2016-09-28 21:07] VITALS: BP 126/60
[2016-09-29] MEDS ORDERED: ZITHROMAX PO SCH (10:00)
== END 2016-09-28 21:14 | disposition home or self-care (01) | DRG 981 ==
LOC: ED 04:07 → 4A 05:39 → CC1 09-24 19:27 → 4A 09-25 17:26
PROVIDERS: ADMIT Internal Medicine; ATTEND Internal Medicine
PROC: 02703DZ Dilation of Coronary Artery, One Artery with Intraluminal Device, Percutaneous Approach (ICD-10-PCS; principal; 2016-09-24)
PROC: 4A023N7 Measurement of Cardiac Sampling and Pressure, Left Heart, Percutaneous Approach (ICD-10-PCS; 2016-09-24)
PROC: B2111ZZ Fluoroscopy of Multiple Coronary Arteries using Low Osmolar Contrast (ICD-10-PCS; 2016-09-24)
PROC: B2151ZZ Fluoroscopy of Left Heart using Low Osmolar Contrast (ICD-10-PCS; 2016-09-24)
DX: J69.0 Pneumonitis due to inhalation of food and vomit (principal); I21.3 ST elevation (STEMI) myocardial infarction of unspecified site; N18.6 End stage renal disease; I12.0 Hypertensive chronic kidney disease with stage 5 chronic kidney disease or end stage renal disease; I48.92 Unspecified atrial flutter; I47.1 Supraventricular tachycardia; E11.22 Type 2 diabetes mellitus with diabetic chronic kidney disease; E78.00 Pure hypercholesterolemia, unspecified; F17.200 Nicotine dependence, unspecified, uncomplicated; D64.9 Anemia, unspecified; J44.9 Chronic obstructive pulmonary disease, unspecified; E78.5 Hyperlipidemia, unspecified; K21.9 Gastro-esophageal reflux disease without esophagitis; Z88.8 Allergy status to other drugs, medicaments and biological substances; Z79.82 Long term (current) use of aspirin; Z91.15 Patient's noncompliance with renal dialysis; Z86.73 Personal history of transient ischemic attack (TIA), and cerebral infarction without residual deficits; Z91.048 Other nonmedicinal substance allergy status; Z99.2 Dependence on renal dialysis; D30.02 Benign neoplasm of left kidney
CPT/HCPCS: 36415; 71010; 78582; 80048; 80061; 82550; 82553; 82962; 83735; 83880; 84443; 84484; 85025; 85027; 85347; 87040; 90732; 92928; 93005; 93010; 93306; 93458; 94644; 94760; 96374; 96375; 96376; A9270-GY; A9540; A9558; C1725; C1769; C1876; C1887; C1894; J0153; J0456; J0696; J0885; J1644; J1940; J1956; J2250; J3010; J7030; J7040; J7050; Q9967

== ENCOUNTER 2016-12-22 10:22 | Outpatient (CLI) | payer MEDICARE ==
--- NOTE | 2016-12-22 14:29 | Cat Scan Report ---
CT abdomen and pelvis with and without contrast: Renal failure and left renal mass. Transverse images are obtained from the low chest to the iliac crests prior to and following IV contrast. Coronal and sagittal 2-D reformatted images included. Coronary vascular calcifications are noted. Focal pleural thickening in the lower right lateral chest with atelectatic changes at the right lung base. The abdominal aorta and common iliac arteries are heavily calcified but normal in size and contour. There is a combination of gallbladder sludge and calcification which may represent milk of calcium or calculus. No inflammation. The unenhanced bowel appears generally normal. Scattered tiny calcifications are noted in the superior left and right kidneys as well as in the inferior left kidney. Bilateral small low attenuation masses are scattered throughout both kidneys with the largest on the right in the inferior pole measuring 16 mm and in the medial left kidney measuring 17 mm in. These all are consistent with simple cysts. There is a is a 19 mm low-attenuation but faintly calcified mass in the superior left kidney. There is a 3.8 cm mass in the mid and lower left kidney which is both central as well as with an exophytic extension. The exophytic portion has a moderate degree of calcification. Following administration of IV contrast there is no enhancement of the right renal masses nor of the superior left renal mass. There is mild inhomogeneous enhancement however left lower pole mass. There is no significant accumulation of contrast in the central collecting system and no evidence of hydronephrosis. Impressions: 1. The left lower pole renal mass could either represent a slightly enhancing and partially calcified complicated cyst or a primarily cystic tumor. Nonenhancing MRI may be helpful. 2. Diffuse bilateral benign appearing renal cysts and no significant collecting system contrast consistent with chronic renal failure. 3. Gallbladder sludge with calculus/milk of calcium.
== END 2016-12-22 10:23 | disposition home or self-care (01) ==
LOC: CT 10:22
PROVIDERS: ATTEND Internal Medicine Nephrology
DX: K80.20 Calculus of gallbladder without cholecystitis without obstruction (principal); N28.89 Other specified disorders of kidney and ureter; I25.10 Atherosclerotic heart disease of native coronary artery without angina pectoris; K82.8 Other specified diseases of gallbladder; I12.0 Hypertensive chronic kidney disease with stage 5 chronic kidney disease or end stage renal disease; N18.6 End stage renal disease; F17.200 Nicotine dependence, unspecified, uncomplicated
CPT/HCPCS: 74170; Q9967

== ENCOUNTER 2017-12-27 12:36 | Emergency (ER) | payer MEDICARE ==
--- NOTE | 2017-12-27 13:21 | Emergency Department Report ---
ED General Adult HPI - General Stated complaint: PROLONGED BLEEDING Time Seen by Provider: 12/27/17 13:15 - History of Present Illness Initial comments: Patient is 67 years old female with history of hypertension, diabetes and end- stage renal disease on hemodialysis. Patient brought to the ER via EMS from dialysis center after the patient started bleeding from her left arm fistula. Upon arrival to the ER patient had pressure dressing but the patient profusely bleeding. Patient has an obvious arterial bleeding that required me to apply blood pressure cough proximal and distal to the fistula. Then I put a figure of 8 suture that stopped the bleeding. -: Sudden - Related Data Home Medications Medication Instructions Recorded Confirmed Last Taken Cinacalcet [Sensipar] 30 mg PO QDAY 08/03/13 11/27/16 11/26/16 Vit B Comp No.3/Folic/C/Biotin 1 each PO QDAY 08/03/13 11/27/16 11/26/16 [Nephro-Sheila Rx Tablet] Lisinopril [Zestril TAB] 10 mg PO QDAY 09/22/16 11/27/16 11/26/16 Lubiprostone (Nf) [Amitiza (Nf)] 24 mcg PO BID 09/22/16 11/27/16 11/26/16 Ondansetron [Zofran TAB] 4 mg PO Q8HR PRN 09/22/16 11/27/16 11/26/16 Pantoprazole [Protonix TAB] 40 mg PO BID 09/22/16 11/27/16 11/26/16 Simvastatin [Zocor TAB] 20 mg PO QHS 09/22/16 11/27/16 11/26/16 Umeclidinium [place] [Incruse 62.5 mcg IH DAILY 09/22/16 11/27/16 11/26/16 Ellipta] Previous Rx's Medication Instructions Recorded Last Taken Type Acetaminophen [Acetaminophen TAB] 325 mg PO Q4H PRN #30 tablet 09/24/16 Rx Carvedilol [Coreg] 12.5 mg PO BID #60 tablet 09/24/16 11/26/16 Rx Doxycycline [Vibramycin CAP] 100 mg PO Q12HR #8 capsule 09/24/16 11/26/16 Rx dilTIAZem [Cardizem] 30 mg PO Q6HR #1 mo 09/24/16 11/26/16 Rx Aspirin [Aspirin BABY CHEW TAB] 81 mg PO QDAY #30 tab.chew 09/25/16 11/26/16 Rx AtorvaSTATin [Lipitor] 80 mg PO QHS #30 tablet 09/25/16 11/26/16 Rx Clopidogrel [Plavix] 75 mg PO QDAY #30 tablet 09/25/16 11/26/16 Rx dilTIAZem CD [Cardizem Cd] 120 mg PO DAILY #30 cap 11/29/16 Unknown Rx oxyCODONE /ACETAMINOPHEN [Percocet 1 tab PO BID PRN #20 tablet 11/29/16 Unknown Rx 5/325 mg] Allergies Allergy/AdvReac Type Severity Reaction Status Date / Time adhesive Allergy Mild Rash Verified 12/27/17 14:17 levofloxacin [From Levaquin] Allergy Itching Verified 12/27/17 14:17 ED Review of Systems ROS: Stated complaint: PROLONGED BLEEDING Other details as noted in HPI Comment: All other systems reviewed and negative Constitutional: denies: chills, fever Respiratory: denies: cough, orthopnea, shortness of breath, SOB with exertion, SOB at rest, wheezing Cardiovascular: denies: chest pain, palpitations, dyspnea on exertion Gastrointestinal: denies: abdominal pain, nausea Musculoskeletal: denies: back pain ED Past Medical Hx - Past Medical History Hx Hypertension: Yes Hx Heart Attack/AMI: No Hx Congestive Heart Failure: Yes (bnp > 35,000) Hx Diabetes: Yes Hx Deep Vein Thrombosis: No Hx Pulmonary Embolism: No Hx Liver Disease: No Hx Renal Disease: Yes (dialysis: ) Hx Sickle Cell Disease: No Hx Arthritis: No Hx Seizures: No Hx Asthma: No Hx COPD: No Hx Tuberculosis: No Hx Dementia: No Hx HIV: No Additional medical history: High cholesterol - Surgical History Hx Coronary Stent: No Hx Pacemaker: No Hx Internal Defibrillator: No Additional Surgical History: AV graft; Lumpectomy R breast - Social History Smoking Status: Current Every Day Smoker - Medications Home Medications: Home Medications Medication Instructions Recorded Confirmed Last Taken Type Cinacalcet [Sensipar] 30 mg PO QDAY 08/03/13 11/27/16 11/26/16 History Vit B Comp No.3/Folic/C/Biotin 1 each PO QDAY 08/03/13 11/27/16 11/26/16 History [Nephro-Sheila Rx Tablet] Lisinopril [Zestril TAB] 10 mg PO QDAY 09/22/16 11/27/16 11/26/16 History Lubiprostone (Nf) [Amitiza (Nf)] 24 mcg PO BID 09/22/16 11/27/16 11/26/16 History Ondansetron [Zofran TAB] 4 mg PO Q8HR PRN 09/22/16 11/27/16 11/26/16 History Pantoprazole [Protonix TAB] 40 mg PO BID 09/22/16 11/27/16 11/26/16 History Simvastatin [Zocor TAB] 20 mg PO QHS 09/22/16 11/27/16 11/26/16 History Umeclidinium [place] [Incruse 62.5 mcg IH DAILY 09/22/16 11/27/16 11/26/16 History Ellipta] Acetaminophen [Acetaminophen TAB] 325 mg PO Q4H PRN #30 tablet 09/24/1611/26/16 Rx Carvedilol [Coreg] 12.5 mg PO BID #60 tablet 09/24/16 11/27/16 11/26/16 Rx Doxycycline [Vibramycin CAP] 100 mg PO Q12HR #8 capsule 09/24/16 11/27/16 Rx dilTIAZem [Cardizem] 30 mg PO Q6HR #1 mo 09/24/16 11/27/16 11/26/16 Rx Aspirin [Aspirin BABY CHEW TAB] 81 mg PO QDAY #30 tab.chew 09/25/16 11/27/16 Rx AtorvaSTATin [Lipitor] 80 mg PO QHS #30 tablet 09/25/16 11/27/16 11/26/16 Rx Clopidogrel [Plavix] 75 mg PO QDAY #30 tablet 09/25/16 11/27/16 11/26/16 Rx dilTIAZem CD [Cardizem Cd] 120 mg PO DAILY #30 cap 11/29/16 Unknown Rx oxyCODONE /ACETAMINOPHEN [Percocet 1 tab PO BID PRN #20 tablet 11/29/16 Unknown Rx 5/325 mg] ED Physical Exam - General Limitations: No Limitations General appearance: alert, in no apparent distress, anxious - Head Head exam: Present: atraumatic, normocephalic, normal inspection - Eye Eye exam: Present: normal appearance, PERRL - ENT ENT exam: Present: normal exam, normal orophraynx, mucous membranes moist - Neck Neck exam: Present: normal inspection, full ROM. Absent: tenderness, meningismus, lymphadenopathy, thyromegaly - Respiratory Respiratory exam: Present: normal lung sounds bilaterally - Cardiovascular Cardiovascular Exam: Present: regular rate, normal rhythm, normal heart sounds - GI/Abdominal GI/Abdominal exam: Present: soft, normal bowel sounds. Absent: distended, tenderness, guarding, rebound, rigid - Expanded Upper Extremity Exam Left Upper Arm exam: Present: other (left arm AV graft with excessive arterial bleeding that did not stop with pressure and respond to the blood pressure cough proximal and distal and sutures.) Elbow exam: Present: normal inspection - Back Exam Back exam: Present: normal inspection, full ROM. Absent: CVA tenderness (L), muscle spasm - Neurological Exam Neurological exam: Present: alert, oriented X3, CN II-XII intact, normal gait, reflexes normal - Skin Skin exam: Present: warm ED Course Vital Signs 12/27/17 12/27/17 13:30 14:10 Pulse Rate 58 L Respiratory 16 16 Rate Blood Pressure 126/62 O2 Sat by Pulse 100 100 Oximetry - Reevaluation(s) Reevaluation #1: 12/27/17 14:07 Patient stated that she is feeling better. No more bleeding from the AV fistula. - Laceration /Wound Repair Left Arm Wound Location: upper extremity Wound Length (cm): 1 Betadine Prep?: Yes Suture Size/Type: 3:0, nylon Sterile Dressing Applied?: Yes Progress: Patient is bleeding from left AV fistula. Pressure dressing did not list on the bleeding. It is an obvious source of bleeding so I went ahead and get to stitches and that helped to stop the bleeding. No complication. ED Medical Decision Making - Lab Data Result diagrams: 12/27/17 13:27 12/27/17 13:27 - Medical Decision Making Patient is 67 years old female with history of hypertension, diabetes and end- stage renal disease on hemodialysis. Patient brought to the ER via EMS from dialysis center after the patient started bleeding from her left arm fistula. Upon arrival to the ER patient had pressure dressing but the patient profusely bleeding. Patient has an obvious arterial bleeding that required me to apply blood pressure cough proximal and distal to the fistula. Then I put a figure of 8 suture that stopped the bleeding. Patient observed in the ER no bleeding. Critical Care Time: Yes Critical care time in (mins) excluding proc time.: 30 Critical care attestation.: If time is entered above; I have spent that time in minutes in the direct care of this critically ill patient, excluding procedure time. ED Disposition Clinical Impression: Surgical arteriovenous fistula hemorrhage Disposition: TO HOME OR SELFCARE Is pt being admited?: No Condition: Stable Instructions: End-Stage Kidney Disease (ED) Referrals: PRIMARY CARE, [Primary Care Provider] - 3-5 Days
[2017-12-27 13:43] LABS: Basophils # (Auto) 0.2 K/mm3 (0.0-0.1); Basophils % (Auto) 2.7 % (0.0-1.8); Eosinophils # (Auto) 0.3 K/mm3 (0.0-0.4); Eosinophils % (Auto) 5.5 % (0.0-4.3); Hematocrit 33.3 % (30.3-42.9); Hemoglobin 11.3 gm/dl (10.1-14.3); Lymphocytes # (Auto) 0.9 K/mm3 (1.2-5.4); Lymphocytes % (Auto) 15.1 % (13.4-35.0); Mean Corpuscular HGB Conc 34 % (30-34); Mean Corpuscular Hemoglobin 32 pg (28-32); Mean Corpuscular Volume 94 fl (79-97); Monocytes # (Auto) 0.7 K/mm3 (0.0-0.8); Monocytes % (Auto) 12.4 % (0.0-7.3); Platelet Count 257 K/mm3 (140-440); Red Blood Count 3.56 M/mm3 (3.65-5.03); Red Cell Distribution Width 16.9 % (13.2-15.2)
[2017-12-27 13:55] LABS: INR 0.98 (0.87-1.13); Partial Thromboplastin Time 29.8 Sec. (24.2-36.6)
[2017-12-27 14:08] LABS: Alanine Aminotransferase 16 units/L (7-56); Albumin 3.9 g/dL (3.9-5); BUN/Creatinine Ratio 5; Blood Urea Nitrogen 31 mg/dL (7-17); Calcium 9.1 mg/dL (8.4-10.2); Hemolysis Index 14
[2017-12-27 14:12] LABS: Bilirubin,Direct < 0.2 mg/dL (0-0.2)
[2017-12-27 14:17] VITALS: BP 126/62
== END 2017-12-27 16:26 | disposition home or self-care (01) ==
LOC: ED 12:36
DX: T82.838A Hemorrhage due to vascular prosthetic devices, implants and grafts, initial encounter (principal); I13.2 Hypertensive heart and chronic kidney disease with heart failure and with stage 5 chronic kidney disease, or end stage renal disease; N18.6 End stage renal disease; E11.22 Type 2 diabetes mellitus with diabetic chronic kidney disease; Z99.2 Dependence on renal dialysis; E78.00 Pure hypercholesterolemia, unspecified; F17.200 Nicotine dependence, unspecified, uncomplicated; Z79.82 Long term (current) use of aspirin; Z88.1 Allergy status to other antibiotic agents; Z88.8 Allergy status to other drugs, medicaments and biological substances
CPT/HCPCS: 36415; 80048; 80074; 85025; 85610; 85730

== ENCOUNTER 2018-01-20 11:08 | Outpatient (CLI) | payer MEDICARE ==
[~2018-01-20 11:08] MED LIST: XYLOCAINE TOPICAL 4% TP ONE
[2018-01-20] MEDS ORDERED: XYLOCAINE TOPICAL 4% TP ONE (15:30)
== END 2018-01-20 11:09 | disposition home or self-care (01) ==
LOC: WOUND 11:08
PROVIDERS: ATTEND Surgery
DX: T81.89XA Other complications of procedures, not elsewhere classified, initial encounter (principal); S41.102A Unspecified open wound of left upper arm, initial encounter; E11.22 Type 2 diabetes mellitus with diabetic chronic kidney disease; I12.0 Hypertensive chronic kidney disease with stage 5 chronic kidney disease or end stage renal disease; N18.6 End stage renal disease; J44.9 Chronic obstructive pulmonary disease, unspecified; F17.200 Nicotine dependence, unspecified, uncomplicated; Z99.2 Dependence on renal dialysis; Z98.49 Cataract extraction status, unspecified eye; Z90.710 Acquired absence of both cervix and uterus; Z86.73 Personal history of transient ischemic attack (TIA), and cerebral infarction without residual deficits; X58.XXXA Exposure to other specified factors, initial encounter; Y83.8 Other surgical procedures as the cause of abnormal reaction of the patient, or of later complication, without mention of misadventure at the time of the procedure; Y92.89 Other specified places as the place of occurrence of the external cause; Y93.89 Activity, other specified; Y99.8 Other external cause status
CPT/HCPCS: 11042; 97605; G0463; 99215

== ENCOUNTER 2018-01-26 13:11 | Outpatient (CLI) | payer MEDICARE | END 2018-01-26 13:12 | disposition home or self-care (01) | LOC: WOUND 13:11 | PROVIDERS: ATTEND Surgery | DX: T81.89XD Other complications of procedures, not elsewhere classified, subsequent encounter (principal); S41.102D Unspecified open wound of left upper arm, subsequent encounter; E11.22 Type 2 diabetes mellitus with diabetic chronic kidney disease; I12.0 Hypertensive chronic kidney disease with stage 5 chronic kidney disease or end stage renal disease; N18.6 End stage renal disease; J44.9 Chronic obstructive pulmonary disease, unspecified; F17.200 Nicotine dependence, unspecified, uncomplicated; Z99.2 Dependence on renal dialysis; Z98.49 Cataract extraction status, unspecified eye; Z90.710 Acquired absence of both cervix and uterus; Z86.73 Personal history of transient ischemic attack (TIA), and cerebral infarction without residual deficits; X58.XXXD Exposure to other specified factors, subsequent encounter; Y83.8 Other surgical procedures as the cause of abnormal reaction of the patient, or of later complication, without mention of misadventure at the time of the procedure | CPT/HCPCS: 99214; G0463 ==